=== PATIENT | female | born 1975 | race Hispanic/Latino ===

== ENCOUNTER 2020-01-29 13:01 | Inpatient (IN) | payer MEDICAID, SELFPAY ==
[2020-01-29 14:38] LABS: #Basophils 0.1 thou/uL (0.0-0.2); #Eosinphils 0.1 thou/uL (0.0-0.7); #Monocytes 0.6 thou/uL (0.11-0.59); #Neutrophils 11.4 thou/uL (1.40-6.50); %Basophils 0.6 % (0.0-1.0); %Eosinophils 0.8 % (0.0-10.0); %Lymphocytes 19.6 % (21.0-51.0); %Neutrophils 75.1 % (42.0-75.0); Hemoglobin 14.7 g/dL (12.0-16.0); Mean Corpuscular HGB CONC 31.3 g/dL (32.0-36.0); Mean Corpuscular Volume 92.7 fL (78.0-98.0); Mean Platelet Volume 7.6 fL (7.4-10.4); Platelet Count 601 thou/uL (130-400); RBC Distribution Width 12.8 % (11.5-14.5); Red Blood Cell (RBC) Count 5.06 mill/uL (4.20-5.40); White Blood Cell (WBC) Count 15.1 thou/uL (4.8-10.8)
[2020-01-29] MEDS ORDERED: Morphine 4 MG/ML VIAL ONE (14:56)
[2020-01-29] MEDS ORDERED: cefTRIAXone\\ROCEPHIN 1 GM VIAL ONE (14:56)
[2020-01-29] MEDS ORDERED: Vancomycin 1 GM/200 ML BAG ONE (14:56)
[2020-01-29] MEDS ORDERED: Ondansetron PF 4 MG/2 ML Vial ONE (15:04)
--- NOTE | 2020-01-29 15:47 | ULT ---
Ultrasound left breast limited: 01/29/2020 HISTORY: 44-year-old female with pain and erythema of the left breast. TECHNIQUE: Focused ultrasound of the region of interest FINDINGS: At the 2:00 position, 2 cm from the nipple, there is a large, approximately 5 x 4.5 x 4.5 cm complex mass, which consists of large geographic components of low-intermediate echogenicity, interspersed with large geographic components of high echogenicity. No suspicious acoustic shadowing. Little or no anechoic fluid visualized. There is blood flow at some portions of the periphery. IMPRESSION: Large, complex, noncystic mass at the upper outer quadrant of the left breast. Possibilities include phlegmon and hematoma. The appearance and history are not typical for ductal carcinoma. No percutaneously drainable fluid visualized.
[2020-01-29 16:02] LABS: Albumin 3.7 g/dL (3.5-5.0)
[2020-01-29 16:03] LABS: Chloride 94 mmol/L (98-107)
[2020-01-29 16:04] LABS: Calcium 9.3 mg/dL (7.8-10.44); Potassium 3.7 mmol/L (3.5-5.1); Sodium 127 mmol/L (136-145)
[2020-01-29 16:05] LABS: Globulin 4.8 g/dL (2.4-3.5); Glucose 334 mg/dL (70-105); Protein, Total 8.5 g/dL (6.0-8.3)
[2020-01-29 16:06] LABS: Anion Gap 16 mmol/L (10-20); Carbon Dioxide 21 mmol/L (22-29)
[2020-01-29 16:07] LABS: Bilirubin, Total 0.4 mg/dL (0.2-1.2)
[2020-01-29 16:08] LABS: Alkaline Phosphatase 131 U/L (40-110); Calc. Creatinine Clearance 0 mL/min (70-130)
[2020-01-29 16:09] LABS: BUN (Urea Nitrogen) 4 mg/dL (7.0-18.7)
[2020-01-29 16:10] LABS: AST (SGOT) 26 U/L (5-34)
[2020-01-29 16:11] LABS: ALT (SGPT) 50 U/L (8-55)
[2020-01-29] MEDS ORDERED: Lidocaine 1% w/Epinephrine 1:100K 20 ML VIAL ONE (17:33)
[2020-01-29] MEDS ORDERED: Midazolam HCl 2 mg/2 ml Vial ONE (17:57)
[2020-01-29 18:01] LABS: Lactic Acid 1.5 mmol/L (0.5-2.2)
[2020-01-29] MEDS ORDERED: Fentanyl 100 MCG/2 ML VIAL ONE (18:58)
--- NOTE | 2020-01-29 20:05 | PDOC.HHP ---
Hospitalist HPI - History of Present Illness Breast mass History of Present Illness: Ms. Reese is a 44-year-old female with a past medical history of hypertension, type 2 diabetes mellitus, bipolar disorder who presents for a breast abscess. Patient reports that approximately 2 weeks ago she noticed a lump near her left breast nipple. She attempted to use hot compresses on this area however the redness and swelling continued to grow. She went to her PCP who prescribed her Bactrim which she has taken for the past 4 days however the redness and swelling has continued to worsen. Patient has also developed fever and chills for the past 3 days. She denies any nipple discharge. She notes she had a an abscess to her left breast approximately 1 year ago but it was closer to the upper pole of the breast and did not require incision and drainage. At that time she did note purulent nipple discharge. No personal or family history of breast cancer. She does note a history of uterine cancer in her maternal aunts, and colon cancer in her paternal grandparents. Last mammogram was in 2014 which was normal. She denies any other concerns or complaints at this time. In emergency room initial vital signs 149/84, 104, 20, 94% on room air, 98.1. WBC 15.1, H/H 14.1/46.9. BUN/CR 4/0.85. Glucose 334, sodium 127, potassium 3.7. Breast ultrasound was done which found a large complex mass concerning for phlegmon versus hematoma. Patient underwent incision and drainage in the emergency room which let out copious amounts of imani pus. Patient received vancomycin, ceftriaxone, morphine and 1 L of normal saline in the emergency room. Hospitalist ROS - Review of Systems Constitutional: reports: fever, chills. denies: sweats, weakness, malaise, other Eyes: denies: pain, vision change, conjunctivae inflammation, eyelid inflammation, redness, other ENT: denies: ear pain, ear discharge, nose pain, nose discharge, nose congestion, mouth pain, mouth swelling, throat pain, throat swelling, other Respiratory: denies: cough, dry, shortness of breath, hemoptysis, SOB with excertion, pleuritic pain, sputum, wheezing, other Cardiovascular: denies: chest pain, palpitations, orthopnea, paroxysmal noc. dyspnea, edema, light headedness, other Gastrointestinal: denies: nausea, vomiting, abdominal pain, diarrhea, constipation, melena, hematochezia, other Genitourinary: denies: dysuria, frequency, incontinence, hematuria, retention, other Musculoskeletal: denies: neck pain, shoulder pain, arm pain, back pain, hand pain, leg pain, foot pain, other Skin: reports: rash (Large erythematous mass to left breast) Neurological: denies: weakness, numbness, incoordination, change in speech, confusion, seizures, other - Medication Medications: Home medications include Metformin Cyclobenzaprine Seroquel Xanax Lisinopril Lexapro Losartan Allergies to penicillin and codeine. Denies any history of anaphylaxis. Hospitalist History - Past Medical History Other Medical History: Past medical history includes Hypertension Type 2 diabetes Bipolar disorder - Past Surgical History Other Surgical History: Past surgical history of Cholecystectomy - Family History Other Family History: Family history of uterine cancer in maternal aunts, colon cancer in paternal grandparents. - Social History Smoking Status: Current every day smoker Tobacco Type: cigarettes Alcohol: reports: None Drugs: reports: none Living Situation: With Family Activity level: independent ambulation - Exam General Appearance: NAD, awake alert Eye: PERRL, anicteric sclera ENT: normocephalic atraumatic, no oropharyngeal lesions, moist mucosa Neck: supple, symmetric, no JVD, no thyromegaly, no lymphadenopathy, no carotid bruit Heart: RRR, no murmur, no gallops, no rubs, normal peripheral pulses Respiratory: CTAB, no wheezes, no rales, no ronchi, normal chest expansion, no tachypnea, normal percussion Gastrointestinal: soft, non-tender, non-distended, normal bowel sounds, no palpable masses, no hepatomegaly, no splenomegaly, no bruit Extremities: no cyanosis, no clubbing, no edema Skin - other findings: Approximately 20 cm x 20 cm area of erythema and induration to left breast Neurological: cranial nerve grossly intact, normal sensation to touch, no weakness, no focal deficits, no new deficit Musculoskeletal: normal tone, normal strength, no muscle wasting Psychiatric: normal affect, normal behavior, A&O x 3 Hospitalist Results - Labs Result Diagrams: 01/29/20 14:21 01/29/20 14:21 Lab results: WBC 15.1 thou/uL (4.8-10.8) H 01/29/20 14:21 Hgb 14.7 g/dL (12.0-16.0) 01/29/20 14:21 Hct 46.9 % (36.0-47.0) 01/29/20 14:21 MCV 92.7 fL (78.0-98.0) 01/29/20 14:21 Plt Count 601 thou/uL (130-400) H 01/29/20 14:21 Neutrophils % 75.1 % (42.0-75.0) H 01/29/20 14:21 Sodium 127 mmol/L (136-145) L 01/29/20 14:21 Potassium 3.7 mmol/L (3.5-5.1) 01/29/20 14:21 Chloride 94 mmol/L (98-107) L 01/29/20 14:21 Carbon Dioxide 21 mmol/L (22-29) L 01/29/20 14:21 BUN 4 mg/dL (7.0-18.7) L 01/29/20 14:21 Creatinine 0.85 mg/dL (0.6-1.1) 01/29/20 14:21 Glucose 334 mg/dL (70-105) H 01/29/20 14:21 Lactic Acid 1.5 mmol/L (0.5-2.2) 01/29/20 17:29 Calcium 9.3 mg/dL (7.8-10.44) 01/29/20 14:21 Total Bilirubin 0.4 mg/dL (0.2-1.2) 01/29/20 14:21 AST 26 U/L (5-34) 01/29/20 14:21 ALT 50 U/L (8-55) 01/29/20 14:21 Alkaline Phosphatase 131 U/L (40-110) H 01/29/20 14:21 Serum Total Protein 8.5 g/dL (6.0-8.3) H 01/29/20 14:21 Albumin 3.7 g/dL (3.5-5.0) 01/29/20 14:21 Hospitalist H&P A/P - Plan Plan: Breast abscess 44-year-old female past medical history of diabetes, hypertension, bipolar disorder, tobacco use who presents with a large breast abscess requiring I&D in the emergency room. White blood cell count elevated at 15.1, lactic acid elevated to 2.7. Patient tachycardic to 104. Patient started on vancomycin, ceftriaxone and received 1 L of normal saline in ED. Patient hemodynamically stable currently. Will start on vancomycin, cefepime, and clinda coverage. Wi ll consult general surgery to assess if wound needs washout. Patient will also need outpatient follow-up for mammogram to rule out malignancy. Plan Vancomycin, cefepime, clinda Trend fever curve W BC Pain control with morphine as needed General surgery consult Outpatient mammogram to rule out malignancy Severe sepsis without septic shock Patient with severe sepsis secondary to large breast abscess. Initial lactic acid 2.7, improved to 1.5 after 1 L of normal saline. WBC 15.1. Patient tachypneic to 20, tachycardic to 104. Now improved. Patient received vanc omycin and ceftriaxone in the emergency room. Will cover patient with vancomycin, cefepime, and clindamycin. Plan Vancomycin, cefepime, clindamycin IV fluids -Follow blood cultures and deescalate abx when possible Trend fever curve, WBC Source control Hyponatremia Na 127 on admission. Mild hyponatremia. Suspect likely 2/2 psychiatric medications. Will check urine lytes, osms. Plan -Urine lytes, osms -Trend sodium, q6hr -Gentle IVF, not to overcorrect more than 8 mEq in 24 hrs. -TSH Hypertension History of hypertension on lisinopril and losartan. Will hold in setting of sepsis. Type 2 diabetes mellitus History of type 2 diabetes on Metformin. Will hold Metformin and place on insulin sliding scale with ACHS glucose checks. Bipolar disorder History of bipolar disorder on Seroquel, Xanax, Lexapro. We will continue home medications. Patient currently denies SI/HI. DVT prophylaxisLovenox Full code Case discussed with attending physician, Dr. Coyle.
[2020-01-29] MEDS ORDERED: Communication Order-Pharmacy FS PRN (20:26)
[2020-01-29] MEDS ORDERED: Ondansetron ODT 4 MG TAB PO PRN (20:26)
[2020-01-29] MEDS ORDERED: Ondansetron PF 4 MG/2 ML Vial IVP PRN (20:26)
[2020-01-29] MEDS ORDERED: Dextrose 50% Abboject 50 ML SYRINGE SLOW IVP PRN ×2 (20:26→22:17)
[2020-01-29] MEDS ORDERED: Acetaminophen 325 MG TAB PO PRN (20:26)
[2020-01-29] MEDS ORDERED: Dextrose 5% in Water 1,000 ML IV PRN ×2 (20:26→22:17)
[2020-01-29] MEDS ORDERED: Vancomycin HCl 1 GM in Sodium Chloride 0.9% 250 ML 300 ML IVPB SCH (21:00)
[2020-01-29 22:09] VITALS: BMI 44.6
[2020-01-29] MEDS: Morphine 4 MG/ML VIAL SLOW IVP PRN (22:30)
[2020-01-29] MEDS: HumaLOG 300 UNITS/3 ML VIAL SC PRN (22:30)
[2020-01-29] MEDS: Clindamycin/D5W 600 MG in Premix Bag 1 BAG IVPB SCH (22:31)
[2020-01-29 22:37] LABS: Sodium 129 mmol/L (136-145)
[2020-01-29] MEDS: Cefepime 2 GM in Sodium Chloride 0.9% 100 ML IVPB SCH (23:03)
[2020-01-29] MEDS: Vancomycin 1.5 GRAM/300 ML BAG 1.5 GM in Premix Bag 1 BAG IVPB SCH (23:34)
[2020-01-29] MEDS ORDERED: Piperacillin/Tazobactam 3.375 GM in Sodium Chloride 0.9% 100 ML IVPB SCH (23:59)
[2020-01-30] MEDS: Morphine 4 MG/ML VIAL SLOW IVP PRN ×5 (04:05→21:16)
[2020-01-30 05:02] LABS: #Eosinphils 0.1 thou/uL (0.0-0.7); #Lymphocytes 2.1 thou/uL (1.20-3.40); #Monocytes 0.5 thou/uL (0.11-0.59); #Neutrophils 6.6 thou/uL (1.40-6.50); %Basophils 0.5 % (0.0-1.0); %Eosinophils 1.2 % (0.0-10.0); %Lymphocytes 22.5 % (21.0-51.0); %Monocytes 5.7 % (0.0-10.0); %Neutrophils 70.1 % (42.0-75.0); Hemoglobin 13.1 g/dL (12.0-16.0); Mean Corpuscular HGB CONC 33.4 g/dL (32.0-36.0); Mean Corpuscular Hemoglobin 31.7 pg (27.0-31.0); Mean Corpuscular Volume 94.9 fL (78.0-98.0); Mean Platelet Volume 7.7 fL (7.4-10.4); Platelet Count 453 thou/uL (130-400); RBC Distribution Width 12.5 % (11.5-14.5); Red Blood Cell (RBC) Count 4.14 mill/uL (4.20-5.40); White Blood Cell (WBC) Count 9.4 thou/uL (4.8-10.8)
[2020-01-30 05:05] LABS: Anion Gap 14 mmol/L (10-20); BUN (Urea Nitrogen) Less than 4 mg/dL (7.0-18.7); Calc. Creatinine Clearance 181 mL/min (70-130); Calcium 8.5 mg/dL (7.8-10.44); Carbon Dioxide 22 mmol/L (22-29); Chloride 98 mmol/L (98-107); Glucose 317 mg/dL (70-105); Potassium 3.5 mmol/L (3.5-5.1); Sodium 130 mmol/L (136-145)
[2020-01-30] MEDS: HumaLOG 300 UNITS/3 ML VIAL SC PRN ×3 (06:03→21:16)
[2020-01-30] MEDS: Clindamycin/D5W 600 MG in Premix Bag 1 BAG IVPB SCH ×3 (06:03→21:15)
[2020-01-30 06:44] LABS: Lactic Acid 2.7 mmol/L (0.5-2.2)
[2020-01-30] MEDS: Saccharomyces boulardii 250 MG CAP PO SCH (09:14)
[2020-01-30] MEDS: Enoxaparin Sodium 40 MG/0.4 ML SYRINGE SC SCH (09:14)
[2020-01-30 10:45] LABS: Sodium 131 mmol/L (136-145)
[2020-01-30] MEDS: Cefepime 2 GM in Sodium Chloride 0.9% 100 ML IVPB SCH ×2 (11:06→23:23)
--- NOTE | 2020-01-30 11:38 | PDOC.HOSPP ---
- Subjective Encounter Date: 01/30/20 Subjective: Feeling a little better. Still has a little bit of pain with the left breast. She reports the redness has substantially improved. - Objective Vital Signs & Weight: Vital Signs (12 hours) Temp Pulse Resp BP Pulse Ox 01/30/20 11:28 97.7 F 94 18 167/68 H 98 01/30/20 08:00 97.5 F L 106 H 16 134/78 98 01/30/20 04:00 97.9 F 104 H 16 124/63 96 01/29/20 23:38 98.0 F 117 H 20 128/58 L 97 Weight Weight 251 lb 11.2 oz I&O: 01/29/20 01/30/20 01/31/20 06:59 06:59 06:59 Intake Total 360 Balance 360 Result Diagrams: 01/30/20 03:58 01/30/20 10:25 Additional Labs: Accuchecks 01/30/20 01/29/20 11:03 22:04 POC Glucose 349 H 259 H Hospitalist ROS - Medication Medications: Active Medications Generic Name Dose Route Start Last Admin Trade Name Freq PRN Reason Stop Dose Admin Enoxaparin Sodium 40 mg 01/30/20 09:00 01/30/20 09:14 Enoxaparin Sodium 40 Mg/0.4 Ml Syringe SC 40 mg 0900 VALERI Administration Cefepime HCl 2 gm/ Sodium 100 mls @ 200 mls/hr 01/29/20 23:00 01/30/20 11:06 Chloride IVPB 100 mls 1100,2300 VALERI Administration Clindamycin Phosphate/Dextrose 50 mls @ 100 mls/hr 01/29/20 22:00 01/30/20 06:03 600 mg/ Device IVPB 50 mls Q8HR VALERI Administration Vancomycin HCl 1.5 gm/ Device 300 mls @ 200 mls/hr 01/29/20 23:59 01/29/20 23:34 IVPB 300 mls 1200,2359 VALERI Administration Insulin Human Lispro 0 units 01/29/20 20:26 01/30/20 11:06 Humalog 300 Units/3 Ml Vial SC 5 units .MILD SLIDING SCALE PRN Administration Mild Correctional Scale Insulin Human Lispro 0 units 01/29/20 22:17 01/29/20 22:30 Humalog 300 Units/3 Ml Vial SC 3 unit .BEDTIME SLIDING SC PRN Administration Bedtime Correctional Scale Morphine Sulfate 4 mg 01/29/20 22:16 01/30/20 09:14 Morphine 4 Mg/Ml Vial SLOW IVP 4 mg Q4H PRN Administration moderate severe pain Saccharomyces Boulardii 250 mg 01/30/20 09:00 01/30/20 09:14 Saccharomyces Boulardii 250 Mg Cap PO 250 mg DAILY VALERI Administration - Exam General Appearance: NAD, awake alert General - other findings: Morbidly obese Heart: RRR, no murmur, no gallops, no rubs, normal peripheral pulses Respiratory: CTAB, no wheezes, no rales, no ronchi, normal chest expansion, no tachypnea, normal percussion Gastrointestinal: soft, non-tender, non-distended, normal bowel sounds, no palpable masses, no hepatomegaly, no splenomegaly, no bruit Extremities: no cyanosis, no clubbing, no edema Skin - other findings: Left breast with induration, erythema lateral to areola. Purulent drainage Musculoskeletal: normal tone Psychiatric: normal affect, normal behavior, A&O x 3 Hosp A/P (1) Left breast abscess Code(s): N61.1 - ABSCESS OF THE BREAST AND NIPPLE Status: Acute (2) Hyponatremia Code(s): E87.1 - HYPO-OSMOLALITY AND HYPONATREMIA Status: Acute (3) Hypertension Code(s): I10 - ESSENTIAL (PRIMARY) HYPERTENSION Status: Acute (4) Diabetes mellitus Code(s): E11.9 - TYPE 2 DIABETES MELLITUS WITHOUT COMPLICATIONS Status: Acute (5) Bipolar disorder Code(s): F31.9 - BIPOLAR DISORDER, UNSPECIFIED Status: Acute (6) Morbid obesity Code(s): E66.01 - MORBID (SEVERE) OBESITY DUE TO EXCESS CALORIES Status: Acute - Plan 44-year-old female past medical history of diabetes, hypertension, bipolar disorder, tobacco use who presents with a large breast abscess requiring I&D in the emergency room. White blood cell count elevated at 15.1, lactic acid elevated to 2.7. Patient tachycardic to 104. Patient started on vancomycin, ceftriaxone and received 1 L of normal saline in ED. Patient hemodynamically stable currently. Breast abscess Vancomycin, cefepime, clinda Follow-up blood cultures and wound cultures. Trend fever curve W BC Pain control with morphine as needed General surgery consult Outpatient mammogram to rule out malignancy Severe sepsis without septic shock Patient with severe sepsis secondary to large breast abscess. Initial lactic acid 2.7, improved to 1.5 after 1 L of normal saline. WBC 15.1. Patient tachypneic to 20, tachycardic to 104. Now improved. Patient received va ncomycin and ceftriaxone in the emergency room. Will cover patient with vancomycin, cefepime, and clindamycin. Plan Vancomycin, cefepime, clindamycin IV fluids -Follow blood cultures and deescalate abx when possible Trend fever curve, WBC Source control Hyponatremia Na 127 on admission. Mild hyponatremia. Improving with hydration. Plan -Trend sodium -TSH normal Hypertension History of hypertension on lisinopril and losartan. Will hold in setting of sepsis. Type 2 diabetes mellitus History of type 2 diabetes on Metformin. Resume Metformin and continue sliding scale. Bipolar disorder History of bipolar disorder on Seroquel, Xanax, Lexapro. We will continue home medications. Patient currently denies SI/HI. DVT prophylaxisLovenox Full code
--- NOTE | 2020-01-30 11:45 | CON ---
DATE OF CONSULTATION: 01/30/2020 CHIEF COMPLAINT: Left breast infection. HISTORY OF PRESENT ILLNESS: This is a 44-year-old female with a history of recurrent left breast infection. She had previous infection in the upper breast in the same breast. Mammogram 5 years ago was normal after that resolved. She now notes increasing redness, swelling, no drainage. She denies mass in the area before. Dr. Stewart performed I and D yesterday evening and the wound was packed. PAST MEDICAL HISTORY: Includes, type 2 diabetes, bipolar, hypertension. SURGICAL HISTORY: Cholecystectomy. MEDICINES: 1. Metformin. 2. Cyclobenzaprine. 3. Seroquel. 4. Xanax. 5. Lisinopril. 6. Lexapro. 7. Losartan. ALLERGIES: ALLERGIC TO PENICILLIN AND CODEINE. SOCIAL: Every day smoker. No alcohol. No other drugs. REVIEW OF SYSTEMS: Otherwise negative other than what is described above. PHYSICAL EXAMINATION: HEENT: Sclerae anicteric. Oropharynx clear. NECK: No lymphadenopathy. CHEST: Clear. HEART: Regular rate. ABDOMEN: Soft, nontender. EXTREMITIES: She has no edema to extremities. BREASTS: Examination of the right breast, right axilla is within normal limits without mass or lymphadenopathy. There is no left axillary lymphadenopathy. Left breast reveals an abscess to the upper just above the nipple breast. The packing is removed and dry dressings were placed. There was no ongoing purulence. There is underlying induration. No evidence of ulcerated mass in the area. ASSESSMENT: Left breast mastitis/infection status post incision and drainage. PLAN: Continue iodoform packing, needs to be seen in followup by me in a few weeks after she gets converted to oral antibiotics. I will follow through to make sure that this wound completely heals. We will arrange for mammogram after that. I do not think this represents an inflammatory breast cancer. Job ID: [id number]
[2020-01-30] MEDS ORDERED: metFORMIN 500 MG TAB PO SCH (12:00)
[2020-01-30] MEDS: Vancomycin 1.5 GRAM/300 ML BAG 1.5 GM in Premix Bag 1 BAG IVPB SCH ×2 (12:48→23:56)
[2020-01-30] MEDS: Cyclobenzaprine 10 MG TAB PO SCH ×2 (15:28→21:15)
[2020-01-30] MEDS: metFORMIN 500 MG TAB PO SCH (16:48)
[2020-01-30 20:50] LABS: SARS-CoV-2 MS2 Positive; SARS-CoV-2 N Gene Negative; SARS-CoV-2 S Gene Negative; SARS-CoV-2 by NAA Not Detected (NotDetected); SARS-CoV-2 orf1ab Negative
[2020-01-30] MEDS ORDERED: FLU VACC QS2020-21(6MOS UP)/PF 60 MCG/0.5 ML SYRINGE IM ONE (21:00)
[2020-01-30] MEDS ORDERED: Simvastatin 10 MG TAB PO SCH (21:00)
[2020-01-30] MEDS ORDERED: Ondansetron PF 4 MG/2 ML Vial IVP PRN (21:41)
[2020-01-30] MEDS: ALPRAZolam 1 MG TAB PO PRN (21:55)
[2020-01-30 23:32] LABS: Vancomycin, Trough 8.1 ug/mL
[2020-01-31] MEDS: Morphine 4 MG/ML VIAL SLOW IVP PRN ×4 (01:42→13:20)
[2020-01-31] MEDS: HumaLOG 300 UNITS/3 ML VIAL SC PRN (06:23)
[2020-01-31] MEDS: Clindamycin/D5W 600 MG in Premix Bag 1 BAG IVPB SCH ×2 (06:23→13:21)
[2020-01-31 07:04] LABS: #Basophils 0.1 thou/uL (0.0-0.2); #Eosinphils 0.1 thou/uL (0.0-0.7); #Lymphocytes 2.4 thou/uL (1.20-3.40); #Monocytes 0.5 thou/uL (0.11-0.59); #Neutrophils 5.3 thou/uL (1.40-6.50); %Basophils 0.7 % (0.0-1.0); %Eosinophils 1.5 % (0.0-10.0); %Lymphocytes 28.6 % (21.0-51.0); %Monocytes 5.6 % (0.0-10.0); %Neutrophils 63.7 % (42.0-75.0); Hemoglobin 13.2 g/dL (12.0-16.0); Mean Corpuscular HGB CONC 33.2 g/dL (32.0-36.0); Mean Corpuscular Hemoglobin 31.1 pg (27.0-31.0); Mean Corpuscular Volume 93.6 fL (78.0-98.0); Mean Platelet Volume 7.2 fL (7.4-10.4); Platelet Count 476 thou/uL (130-400); RBC Distribution Width 12.5 % (11.5-14.5); Red Blood Cell (RBC) Count 4.24 mill/uL (4.20-5.40); White Blood Cell (WBC) Count 8.3 thou/uL (4.8-10.8)
[2020-01-31 07:37] LABS: Anion Gap 13 mmol/L (10-20); BUN (Urea Nitrogen) 5 mg/dL (7.0-18.7); Calc. Creatinine Clearance 184 mL/min (70-130); Calcium 8.6 mg/dL (7.8-10.44); Carbon Dioxide 24 mmol/L (22-29); Chloride 98 mmol/L (98-107); Glucose 280 mg/dL (70-105); Potassium 3.3 mmol/L (3.5-5.1); Sodium 132 mmol/L (136-145)
[2020-01-31] MEDS ORDERED: Insulin Regular 300 UNITS/3 ML VIAL SC PRN (08:10)
[2020-01-31] MEDS ORDERED: Potassium Chloride 20 MEQ TAB PO SCH (08:15)
[2020-01-31] MEDS: Cyclobenzaprine 10 MG TAB PO SCH (08:25)
[2020-01-31] MEDS: Vancomycin 1.5 GRAM/300 ML BAG 1.5 GM in Premix Bag 1 BAG IVPB SCH (08:26)
[2020-01-31] MEDS: metFORMIN 500 MG TAB PO SCH (08:26)
[2020-01-31] MEDS: Saccharomyces boulardii 250 MG CAP PO SCH (08:27)
[2020-01-31] MEDS: Enoxaparin Sodium 40 MG/0.4 ML SYRINGE SC SCH (08:27)
[2020-01-31 08:28] VITALS: BP 115/71
--- NOTE | 2020-01-31 08:33 | PRG ---
DATE OF SERVICE: 01/31/2020 SUBJECTIVE: No complaints today. Afebrile. Vital signs are stable. Dressings were removed. The inflammation redness to the left breast is much improved. The open wound was probed. It is approximately 2 cm deep on the medial side. ASSESSMENT: Mastitis, [id number]. PLAN: Repacked today per Wound Care. Await for culture results. I suspect she will be ready for discharge tomorrow. Job ID: [id number]
[2020-01-31] MEDS ORDERED: Escitalopram Oxalate 20 mg Tablet PO SCH (09:00)
[2020-01-31] MEDS ORDERED: Lisinopril 10 MG TAB PO SCH (09:00)
[2020-01-31 10:50] VITALS: TEMP 97.8
[2020-01-31] MEDS: Cefepime 2 GM in Sodium Chloride 0.9% 100 ML IVPB SCH (13:21)
[2020-01-31] MEDS: ALPRAZolam 1 MG TAB PO PRN (13:21)
--- NOTE | 2020-01-31 17:05 | PDOC.DS.DS ---
Provider - Provider Date of Admission: 01/29/20 19:13 Date of Discharge: 01/31/20 Admitting Provider: Kt Coyle MD Primary Care Physician: Sharmaine Hines PA-C Course - Hospital Course Hospital Course: 44-year-old female past medical history of diabetes, hypertension, bipolar disorder, tobacco use who presents with a large breast abscess requiring I&D in the emergency room. White blood cell count elevated at 15.1, lactic acid elevated to 2.7. Patient tachycardic to 104. Patient started on vancomycin, ceftriaxone and received 1 L of normal saline in ED. Patient hemodynamically stable currently. Breast abscess Vancomycin, cefepime, clinda Blood cultures and wound cultures negative Pain control with morphine as needed General surgery consult did not recommend any surgical intervention. Outpatient mammogram to rule out malignancy Severe sepsis without septic shock Patient with severe sepsis secondary to large breast abscess. Initial lactic acid 2.7, improved to 1.5 after 1 L of normal saline. WBC 15.1. Patient tachypneic to 20, tachycardic to 104. Now improved. Patient received vancomycin and ceftriaxone in the emergency room. Will cover patient with vancomycin, cefepime, and clindamycin. Hyponatremia Na 127 on admission. Mild hyponatremia. Improved with hydration. Hypertension History of hypertension on lisinopril and losartan. Initially held for concerns of sepsis subsequently resumed. Type 2 diabetes mellitus History of type 2 diabetes on Metformin. Resumed Metformin and continue sliding scale. Bipolar disorder History of bipolar disorder on Seroquel, Xanax, Lexapro. Continued home medications. Once patient's cultures remain negative and exam of the breast significantly improved she was felt to be stable for discharge to home with oral antibiotics. Wound care pack to the wound and educated the patient on wound packing. The patient indicated her would be able to help her get the wound packed at home. She is encouraged to follow-up with her PCP for additional pain medications if needed. Discharge was discussed with general surgery who agreed with the plan. She will follow up with surgery in 1 week. Patient will be discharged in stable condition. Resuscitation Status: 01/29/20 20:26 Resuscitation Status Routine Co-Sign Provider: Resuscitation Status: FULL: Full Resuscitation - Labs Lab Results: 01/31/20 06:49 01/31/20 06:49 Abnormal Lab Results - Last 48 hrs 01/29/20 04:03: Urine Osmolality 146 L 01/29/20 22:14: Sodium 129 L 01/29/20 22:14: Serum Osmolality 277 L 01/30/20 03:58: Sodium 130 L, BUN Less than 4 L 01/30/20 03:58: RBC 4.14 L, MCH 31.7 H, Plt Count 453 H, Neutrophils # 6.6 H 01/30/20 06:09: Lactic Acid 2.7 H 01/30/20 10:25: Sodium 131 L 01/31/20 06:49: Sodium 132 L, Potassium 3.3 L, BUN 5 L 01/31/20 06:49: MCH 31.1 H, Plt Count 476 H, MPV 7.2 L Microbiology - Entire Visit 01/29/20 14:57 Venous blood - Left Arm Blood Culture - Preliminary NO GROWTH AT 48 HOURS 01/29/20 14:57 Venous blood - Right Arm Blood Culture - Preliminary NO GROWTH AT 48 HOURS 01/29/20 18:13 Breast - Pending Bacterial Culture - Preliminary - Physical Exam Vitals: Vital Signs (12 hours) Temp Pulse Resp BP BP Pulse Ox 01/31/20 08:26 115/71 01/31/20 08:00 97.8 F 96 16 115/71 96 Weight Admit Weight 251 lb 11.2 oz Weight 251 lb 11.2 oz Physical Exam: The patient was seen and examined on the day of discharge. Left breast has significant reduced erythema and induration. Still has some brownish purulent drainage with compression at the incision site. Problem - Problem (1) Left breast abscess Code(s): N61.1 - ABSCESS OF THE BREAST AND NIPPLE Status: Acute (2) Hyponatremia Code(s): E87.1 - HYPO-OSMOLALITY AND HYPONATREMIA Status: Acute (3) Hypertension Code(s): I10 - ESSENTIAL (PRIMARY) HYPERTENSION Status: Acute (4) Diabetes mellitus Code(s): E11.9 - TYPE 2 DIABETES MELLITUS WITHOUT COMPLICATIONS Status: Acute (5) Bipolar disorder Code(s): F31.9 - BIPOLAR DISORDER, UNSPECIFIED Status: Acute (6) Morbid obesity Code(s): E66.01 - MORBID (SEVERE) OBESITY DUE TO EXCESS CALORIES Status: Acute Plan - Discharge Medications Prescriptions: Clindamycin HCl [Cleocin] 300 mg PO TID #21 capsule Home Medications: Medication Instructions Recorded Confirmed Type ALPRAZolam [Xanax] 2 mg PO TID PRN 01/29/20 01/29/20 History Cyclobenzaprine [Flexeril] 10 mg PO TID 01/29/20 01/29/20 History Escitalopram Oxalate 20 mg PO DAILY 01/29/20 01/29/20 History Lisinopril 10 mg PO QAM 01/29/20 01/29/20 History Lovastatin 20 mg PO HS 01/29/20 01/29/20 History QUEtiapine Fumarate [SEROquel] 300 mg PO HS 01/29/20 01/29/20 History metFORMIN [Glucophage] 1,000 mg PO BID-WM 01/29/20 01/29/20 History Clindamycin HCl [Cleocin] 300 mg PO TID #21 capsule 01/31/20 Rx Allergies: codeine Allergy (Verified 01/29/20 22:06) PER ER NOTES Penicillins Allergy (Verified 01/29/20 22:06) PER ER NOTES tramadol Allergy (Verified 01/29/20 22:06) PER ER NOTES - Discharge Instructions Discharge Instructions:: Breast cancer screen when possible. Activity:: Activity as Tolerated Nourishment:: Diabetic Diet Equipment/Supplies:: Wound Care - Follow up Plan Referrals: Sharmaine Hines PA-C [Primary Care Provider] - Robbie Sheldon MD [Active] - 7 Days Disposition: HOME Quality - Care Measures CORE MEASURES:: N/A
== END 2020-01-31 16:40 | disposition home or self-care (01) | DRG 853 ==
LOC: ERS 13:01 → ONC 19:13
PROVIDERS: ADMIT Student in an Organized Health Care Education/Training Program; ATTEND Internal Medicine
PROC: 0H9U0ZZ Drainage of Left Breast, Open Approach (ICD-10-PCS; principal; 2020-01-29)
PROC: 3E02340 Introduction of Influenza Vaccine into Muscle, Percutaneous Approach (ICD-10-PCS; 2020-01-30)
DX: A41.9 Sepsis, unspecified organism (principal); R65.21 Severe sepsis with septic shock; E87.1 Hypo-osmolality and hyponatremia; Z68.41 Body mass index [BMI] 40.0-44.9, adult; N61.1 Abscess of the breast and nipple; Z20.828 Contact with and (suspected) exposure to other viral communicable diseases; Z23 Encounter for immunization; N61.0 Mastitis without abscess; M54.9 Dorsalgia, unspecified; G89.29 Other chronic pain; F41.9 Anxiety disorder, unspecified; F31.9 Bipolar disorder, unspecified; F17.210 Nicotine dependence, cigarettes, uncomplicated; E66.01 Morbid (severe) obesity due to excess calories; E11.9 Type 2 diabetes mellitus without complications; Z88.5 Allergy status to narcotic agent; Z88.0 Allergy status to penicillin; Z79.84 Long term (current) use of oral hypoglycemic drugs; Z79.899 Other long term (current) drug therapy; Z90.49 Acquired absence of other specified parts of digestive tract
CPT/HCPCS: 10060; 36415; 36416; 80048; 80053; 80202; 83605; 83930; 83935; 84295; 84300; 84443; 85025; 87040; 87070; 87205; 87635; 90471; 90662; 90732; 96365; 96375; G0008; G0009; J0692; J0696; J1650; J2250; J2270; J2405; J3010; J3370; J3490; U0003

== ENCOUNTER 2020-02-18 13:15 | Inpatient (IN) | payer SELFPAY ==
[2020-02-18] MEDS ORDERED: Cefepime 2 GM VIAL ONE (13:44)
[2020-02-18] MEDS ORDERED: HYDROmorphone 0.5 MG/0.5 ML SYRINGE ONE ×2 (13:44→16:05)
[2020-02-18] MEDS ORDERED: Iopamidol-370 76% 500 ML 1 ML ONE (13:45)
[2020-02-18 13:52] LABS: #Basophils 0.1 thou/uL (0.0-0.2); #Eosinphils 0.1 thou/uL (0.0-0.7); #Lymphocytes 3.5 thou/uL (1.20-3.40); #Monocytes 0.5 thou/uL (0.11-0.59); #Neutrophils 12.6 thou/uL (1.40-6.50); %Basophils 0.5 % (0.0-1.0); %Eosinophils 0.8 % (0.0-10.0); %Monocytes 3.2 % (0.0-10.0); %Neutrophils 74.5 % (42.0-75.0); Hemoglobin 15.2 g/dL (12.0-16.0); Mean Corpuscular HGB CONC 33.5 g/dL (32.0-36.0); Mean Corpuscular Hemoglobin 30.9 pg (27.0-31.0); Mean Corpuscular Volume 92.3 fL (78.0-98.0); Mean Platelet Volume 7.5 fL (7.4-10.4); Platelet Count 576 thou/uL (130-400); RBC Distribution Width 12.6 % (11.5-14.5); White Blood Cell (WBC) Count 16.9 thou/uL (4.8-10.8)
[2020-02-18] MEDS ORDERED: Ondansetron PF 4 MG/2 ML Vial ONE (13:56)
--- NOTE | 2020-02-18 13:57 | RAD ---
Exam: Chest one view HISTORY:Sepsis. Breast infection Comparison: 08/27/2016 FINDINGS: Cardiac silhouette: Normal Aorta: Unremarkable Pulmonary vessels: Normal Costophrenic angles: Clear LUNGS: No masses or consolidation. Pneumothorax: None Osseous abnormalities: None IMPRESSION: No acute cardiopulmonary process.
[2020-02-18 14:17] LABS: ALT (SGPT) 23 U/L (8-55); AST (SGOT) 28 U/L (5-34); Albumin 4.2 g/dL (3.5-5.0); Alkaline Phosphatase 134 U/L (40-110); Anion Gap 19 mmol/L (10-20); BUN (Urea Nitrogen) 9 mg/dL (7.0-18.7); Bilirubin, Total 0.4 mg/dL (0.2-1.2); Calc. Creatinine Clearance 0 mL/min (70-130); Calcium 9.9 mg/dL (7.8-10.44); Carbon Dioxide 22 mmol/L (22-29); Chloride 91 mmol/L (98-107); Globulin 5.5 g/dL (2.4-3.5); Glucose 400 mg/dL (70-105); Protein, Total 9.7 g/dL (6.0-8.3); Sodium 127 mmol/L (136-145)
[2020-02-18] MEDS ORDERED: Vancomycin 1 GM/200 ML BAG ONE (14:26)
[2020-02-18 14:49] LABS: Bilirubin Negative (Negative); Blood, Urine Negative (Negative); Clarity Clear (Clear); Glucose, Urine (Dipstick) Greater than 1000 mg/dL (Negative); Ketone, Urine Negative (Negative); Leukocyte Negative Leu/uL (Negative); Nitrite Negative (Negative); Protein, Urine (Dipstick) Negative (Neg-Trace); Specific Gravity, Urine 1.028 (1.002-1.036); Urobilinogen Normal mg/dL (Less than 2)
[2020-02-18 14:50] LABS: Pregnancy Test - Urine (BHCG) Negative (Negative); Pregu Control Background? CLEAR/WHITE (CLR/WHITE); Pregu Control Bar Appear? YES (CONTROL BAR); Specific Gravity 1.028 (1.002-1.036)
--- NOTE | 2020-02-18 15:31 | CT ---
CT OF THE CHEST WITH IV CONTRAST INDICATION: 44-year-old female with history of breast infection COMPARISON: Left breast ultrasound dated January 19, 2020 FINDINGS: CHEST: Lungs: There is dependent atelectasis within both lower lobes. No suspicious pulmonary nodule or cons olidation is evident. Pleural space: No effusion. Mediastinum: No pathologically enlarged lymph nodes are evident. Upper abdomen:There is diffuse fatty liver. The gallbladder surgically absent. Adrenal glands are nor mal appearing. Osseous structures: No acute osseous abnormality. No destructive osteolytic or osteoblastic lesion i s identified. There is scattered degenerative and osteoarthritic changes. Soft tissues:There is a 5.8 cm mass seen within the left breast with prominent skin thickening of the left breast. There is an enlarged left axillary lymph node measuring 2.3 x 0.9 cm. No additional enlarged lymph nodes are evident. IMPRESSION: 1. Large left breast mass with skin thickening. The patient is reportedly being followed for left diana ast abscess. On a prior left breast ultrasound there was a complex complex mass within the left breast. Patient reportedly had history of prior left breast abscesses. Would recommend continued clin ical follow-up and consideration for surgical referral. 2. Mildly prominent lymph node within the left axilla. 3. No acute cardiopulmonary abnormality. 4. Fatty liver.
--- NOTE | 2020-02-18 16:54 | PDOC.HHP ---
Hospitalist HPI - History of Present Illness Fever, breast abscess History of Present Illness: Ms. Reese is a 44-year-old female with a past medical history of hypertension, type 2 diabetes mellitus, bipolar disorder who represents to the emergency room for a breast abscess associated with fevers. Of note patient was recently admitted approximately 2 weeks ago on 01/29/2020 for this abscess. I&D was done by the emergency room and surgical intervention was not needed at that time. She was treated with IV antibiotics and discharged on 300 mg 3 times daily of clindamycin for 1 week. Patient reports that 2 days after she completed her antibiotic course she noticed increased pain and swelling to her left breast. Patient reports that she felt continual worsening of her symptoms over the next week, however since it was Thanksgiving she had difficulty connecting with her primary care provider and also Dr. Sheldon's office who consulted her during her prior admission. Patient finally decided to present to the emergency room because over the past 2 days she has had subjective fevers and chills. She reports that she took good care of the wound immediately after and that minimal pus was drained from it. She reports the drainage was mostly oily and mixed with blood. She does have a history of a prior breast abscess of the same breast approximately 1 year ago. She has no personal or family history of breast cancer. But does have a family history of uterine cancer in her maternal aunts and colon cancer in a paternal grandparents. Her last mammogram was in 2014 which was normal she denies any other concerns or complaints at this time. Emergency room initial vital signs 122/76, 120, 18, 98.3, 100% on room air. White blood cell count elevated at 16.9. Lactic acid 3.7. BUN/CR 9/0.98. H/H 15.2/45.2. Glucose 400. Chest x-ray with no acute findings. CT of the breast was done which showed large left breast mass with skin thickening with mild prominent lymph node in the left axilla with recommended surgical referral. Patient is admitted to the hospitalist service for management of patient's sepsis secondary to breast abscess. Hospitalist ROS - Review of Systems Constitutional: reports: fever, chills, malaise. denies: sweats, weakness Eyes: denies: vision change ENT: denies: nose congestion, throat pain Respiratory: denies: cough, shortness of breath, hemoptysis, pleuritic pain, sputum, wheezing Cardiovascular: denies: chest pain, palpitations, orthopnea, paroxysmal noc. dyspnea, edema, light headedness, other Gastrointestinal: denies: nausea, vomiting, abdominal pain, diarrhea, constipation, melena, hematochezia, other Genitourinary: denies: dysuria, frequency, incontinence, hematuria, retention, other Musculoskeletal: denies: neck pain, shoulder pain, arm pain, back pain, hand pain, leg pain, foot pain, other Skin: reports: rash, lesions Neurological: denies: weakness, numbness, incoordination, change in speech, confusion, seizures, other - Medication Medications: Home medications include Metformin Cyclobenzaprine Seroquel Xanax Lisinopril Lexapro Losartan Allergies to penicillin and codeine. Denies any history of anaphylaxis. Hospitalist History - Past Medical History Other Medical History: Past medical history includes Hypertension Type 2 diabetes Bipolar disorder - Past Surgical History Other Surgical History: Past surgical history of Cholecystectomy - Family History Other Family History: Family history of uterine cancer in maternal aunts, colon cancer in paternal grandparents. - Social History Alcohol: reports: None Drugs: reports: none Living Situation: With Family Activity level: independent ambulation - Exam General Appearance: NAD, awake alert Eye: PERRL, anicteric sclera ENT: normocephalic atraumatic, no oropharyngeal lesions, moist mucosa Neck: supple, symmetric, no JVD, no thyromegaly, no lymphadenopathy, no carotid bruit Heart: RRR, no murmur, no gallops, no rubs, normal peripheral pulses Respiratory: CTAB, no wheezes, no rales, no ronchi, normal chest expansion, no tachypnea, normal percussion Gastrointestinal: soft, non-tender, non-distended, normal bowel sounds, no palpable masses, no hepatomegaly, no splenomegaly, no bruit Extremities: no cyanosis, no clubbing, no edema Skin: negative: no rashes (Erythema, scar from I&D, no peau' de orange) Skin - other findings: large mass to L breast, TTP, extending induration below the breast crease Neurological: cranial nerve grossly intact, normal sensation to touch, no weakness, no focal deficits, no new deficit Musculoskeletal: normal tone, normal strength, no muscle wasting Psychiatric: normal affect, normal behavior, A&O x 3 Hospitalist Results - Labs Result Diagrams: 02/18/20 13:31 02/18/20 13:31 Lab results: WBC 16.9 thou/uL (4.8-10.8) H 02/18/20 13:31 Hgb 15.2 g/dL (12.0-16.0) 02/18/20 13:31 Hct 45.2 % (36.0-47.0) 02/18/20 13:31 MCV 92.3 fL (78.0-98.0) 02/18/20 13:31 Plt Count 576 thou/uL (130-400) H 02/18/20 13:31 Neutrophils % 74.5 % (42.0-75.0) 02/18/20 13:31 Sodium 127 mmol/L (136-145) L 02/18/20 13:31 Potassium 5.0 mmol/L (3.5-5.1) 02/18/20 13:31 Chloride 91 mmol/L (98-107) L 02/18/20 13:31 Carbon Dioxide 22 mmol/L (22-29) 02/18/20 13:31 BUN 9 mg/dL (7.0-18.7) 02/18/20 13:31 Creatinine 0.98 mg/dL (0.6-1.1) 02/18/20 13:31 Glucose 400 mg/dL (70-105) H 02/18/20 13:31 Lactic Acid 3.7 mmol/L (0.5-2.2) H 02/18/20 13:31 Calcium 9.9 mg/dL (7.8-10.44) 02/18/20 13:31 Total Bilirubin 0.4 mg/dL (0.2-1.2) 02/18/20 13:31 AST 28 U/L (5-34) 02/18/20 13:31 ALT 23 U/L (8-55) 02/18/20 13:31 Alkaline Phosphatase 134 U/L (40-110) H 02/18/20 13:31 Serum Total Protein 9.7 g/dL (6.0-8.3) H 02/18/20 13:31 Albumin 4.2 g/dL (3.5-5.0) 02/18/20 13:31 Urine Ketones Negative mg/dL (Negative) 02/18/20 14:40 Urine Blood Negative (Negative) 02/18/20 14:40 Urine Nitrite Negative (Negative) 02/18/20 14:40 Ur Leukocyte Esterase Negative Clarence/uL (Negative) 02/18/20 14:40 Hospitalist H&P A/P - Plan Plan: Breast abscess 44-year-old female past medical history of diabetes, hypertension, bipolar disorder, tobacco use who represents for a large breast abscess/mass. Patient was admitted 2 weeks ago for same complaint where she was treated with IV antibiotics. Patient underwent an incision and drainage in the emergency room on 01/29/2020. Surgical intervention was not warranted at that time. Blood and wound cultures with no growth. Patient was discharged on clindamycin for 7 d ays, but had worsening of her erythema and swelling to her left breast. Patient developed fevers and chills 2 days prior to admission prompting her to represent to the emergency room. White blood cell count elevated to 16.9. Lactic acid 3.7. Vital signs stable but tachycardic. Patient received IV fluids, vancomycin, cefepime in emergency room. We will continue IV antibiotics. Since patient has failed initial antibiotic therapy concern for inflammatory breast cancer. Patient does not have a family history of breast cancer, but does have family history of uterine and colon cancer. Last mammogram in 2014 which was normal. Will admit patient and treat for sepsis. We will also consult general surgery for question surgical involvement. Will also obtain oncology consult for further recommendations. Plan Continue IV vancomycin, cefepime, clindamycin Trend fever curve WBC Pain control with morphine as needed General surgery consult, recommendations appreciated Oncology consult, recommendations appreciated ID consult, recommendations appreciated Severe sepsis without septic shock Patient with severe sepsis secondary to large breast abscess. Lactic acid 3.7 WBC 16.9. Patient tachypneic to 20, tachycardic to 120. Now improved. Patient received vancomycin and ceftriaxone in the emergency room. Will cover patient with vancomycin, cefepime, and clindamycin. Plan Vancomycin, cefepime, clindamycin IV fluids -Follow blood cultures Trend fever curve, WBC Source control Hyponatremia Na 127 on admission. Mild hyponatremia. Suspect likely 2/2 psychiatric medications. Will check urine lytes, osms. Plan -Urine lytes, osms -Trend sodium, q6hr -Gentle IVF, not to overcorrect more than 8 mEq in 24 hrs. -TSH Hypertension History of hypertension on lisinopril and losartan. Will hold in setting of sepsis. Type 2 diabetes mellitus History of type 2 diabetes on Metformin. Will hold Metformin and place on insulin sliding scale with ACHS glucose checks. Bipolar disorder History of bipolar disorder on Seroquel, Xanax, Lexapro. We will continue home medications. Patient currently denies SI/HI. DVT prophylaxisLovenox Full code Case discussed with attending physician, Dr. Rincon.
[2020-02-18] MEDS ORDERED: Ondansetron ODT 4 MG TAB PO PRN (17:04)
[2020-02-18] MEDS ORDERED: Dextrose 50% Abboject 50 ML SYRINGE SLOW IVP PRN (17:33)
[2020-02-18] MEDS ORDERED: Dextrose 5% in Water 1,000 ML IV PRN (17:33)
[2020-02-18] MEDS ORDERED: Vancomycin 1 GM in Premix Bag 1 BAG IVPB SCH (17:45)
[2020-02-18] MEDS: Sodium Chloride 0.9% 1,000 ML IV SCH (19:42)
[2020-02-18] MEDS ORDERED: HYDROcodone/Acetaminophen 5/325 mg Tablet PO PRN (20:05)
[2020-02-18 20:07] VITALS: BMI 44.9
[2020-02-18] MEDS ORDERED: Cefepime 2 GM in Sodium Chloride 0.9% 100 ML IVPB SCH (21:00)
[2020-02-18] MEDS: Simvastatin 10 MG TAB PO SCH (21:34)
[2020-02-18] MEDS: HYDROcodone/Acetaminophen 5/325 mg Tablet PO PRN (21:34)
[2020-02-18] MEDS: Vancomycin HCl 1.75 GM in Sodium Chloride 0.9% 500 ML IVPB SCH (21:35)
[2020-02-18] MEDS: HumaLOG 300 UNITS/3 ML VIAL SC PRN (21:43)
[2020-02-18] MEDS: Morphine 2 MG/ML VIAL SLOW IVP PRN (23:54)
[2020-02-19] MEDS: Sodium Chloride 0.9% 1,000 ML IV SCH ×2 (02:58→17:23)
[2020-02-19] MEDS: Cefepime 2 GM in Sodium Chloride 0.9% 100 ML IVPB SCH ×2 (02:58→14:14)
[2020-02-19] MEDS: Morphine 2 MG/ML VIAL SLOW IVP PRN ×2 (03:56→21:03)
[2020-02-19 04:39] LABS: #Eosinphils 0.2 thou/uL (0.0-0.7); #Monocytes 0.6 thou/uL (0.11-0.59); #Neutrophils 9.7 thou/uL (1.40-6.50); %Basophils 0.1 % (0.0-1.0); %Eosinophils 1.4 % (0.0-10.0); %Lymphocytes 16.3 % (21.0-51.0); %Monocytes 4.6 % (0.0-10.0); %Neutrophils 77.6 % (42.0-75.0); Hemoglobin 12.8 g/dL (12.0-16.0); Mean Corpuscular HGB CONC 32.9 g/dL (32.0-36.0); Mean Corpuscular Hemoglobin 30.6 pg (27.0-31.0); Mean Corpuscular Volume 93.1 fL (78.0-98.0); Mean Platelet Volume 7.2 fL (7.4-10.4); Platelet Count 485 thou/uL (130-400); RBC Distribution Width 12.6 % (11.5-14.5); Red Blood Cell (RBC) Count 4.17 mill/uL (4.20-5.40); White Blood Cell (WBC) Count 12.5 thou/uL (4.8-10.8)
[2020-02-19 05:07] LABS: Anion Gap 13 mmol/L (10-20); BUN (Urea Nitrogen) 4 mg/dL (7.0-18.7); Calc. Creatinine Clearance 177 mL/min (70-130); Calcium 8.3 mg/dL (7.8-10.44); Carbon Dioxide 25 mmol/L (22-29); Chloride 100 mmol/L (98-107); Glucose 275 mg/dL (70-105); Potassium 3.8 mmol/L (3.5-5.1); Sodium 134 mmol/L (136-145)
[2020-02-19] MEDS: Vancomycin HCl 1.75 GM in Sodium Chloride 0.9% 500 ML IVPB SCH ×2 (08:19→21:28)
[2020-02-19] MEDS: Escitalopram Oxalate 20 mg Tablet PO SCH (08:20)
[2020-02-19] MEDS: Enoxaparin Sodium 40 MG/0.4 ML SYRINGE SC SCH (08:20)
[2020-02-19] MEDS: Acetaminophen 325 MG TAB PO PRN ×2 (08:20→20:59)
[2020-02-19] MEDS: HYDROcodone/Acetaminophen 5/325 mg Tablet PO PRN (08:59)
--- NOTE | 2020-02-19 10:02 | CON ---
DATE OF CONSULTATION: CHIEF COMPLAINT: Painful left breast mass. HISTORY OF PRESENT ILLNESS: The patient is a 44-year-old female, diabetic, with a 5-year history of intermittent abscess to the left breast. Three weeks ago, she went to the emergency room. A limited I and D was performed. However, it quickly recurred. She has been on antibiotics since, but it continues to get worse. She came into the emergency room. PAST MEDICAL HISTORY: 1. Morbid obesity. 2. Bipolar. 3. Diabetes. 4. Hypertension. PAST SURGICAL HISTORY: 1. Laparoscopic cholecystectomy. 2. Uterine surgery. MEDICATIONS: 1. Metformin. 2. Lisinopril. 3. Lexapro. 4. Seroquel. 5. Xanax. ALLERGIES: PENICILLIN, CODEINE, AND TRAMADOL. SOCIAL HISTORY: She is . Unemployed. Smokes 2 cigarettes a day. No alcohol. FAMILY HISTORY: Diabetes. PHYSICAL EXAMINATION: VITAL SIGNS: Temperature 97.6, pulse 99, and blood pressure 144/91. GENERAL: Morbidly obese female, lying still, in minimal distress. HEENT: Unremarkable. LUNGS: Clear. HEART: Regular rate and rhythm. BREASTS: She has a large about 8 cm inflammatory mass of the upper outer left breast, very tender. There is a tiny little 5-mm healed incision from the previous I and D, very tender. There is some adenopathy. ABDOMEN: Soft, nondistended, and nontender. EXTREMITIES: Unremarkable. LABORATORY DATA: Her white blood cell count is 12.5, down from 16; hemoglobin and hematocrit 12 and 38, and platelet count of 485. Her electrolytes show an elevated glucose of 277, which is down from 400. She had a CT scan of the chest, which showed a complex inflammatory mass, 6 cm, left breast with skin thickening and a large axillary lymph node. ASSESSMENT: Recurrent breast abscess, possible malignancy. PLAN: I and D and biopsy in the OR. CONSENT: I have discussed planned procedure as well as risks of bleeding, recurrent infection, as well as scarring. She understands and gives informed consent. Job ID: [id number]
[2020-02-19] MEDS ORDERED: Fentanyl 100 MCG/2 ML VIAL ONE ×2 (10:04→12:30)
[2020-02-19] MEDS ORDERED: PROPOFOL 200 MG/20 ML VIAL ONE (10:29)
[2020-02-19] MEDS ORDERED: Ondansetron PF 4 MG/2 ML Vial ONE (10:29)
[2020-02-19] MEDS ORDERED: Dexamethasone 20 MG/5 ML VIAL ONE (10:29)
[2020-02-19] MEDS ORDERED: Lidocaine 1% PF 5 ML VIAL ONE (10:29)
[2020-02-19] MEDS ORDERED: Promethazine HCl 25 MG/ML VIAL IM PRN ×2 (11:06→12:29)
[2020-02-19] MEDS ORDERED: Meperidine HCl/PF 25 MG/ML VIAL SLOW IVP PRN ×2 (11:06→12:29)
[2020-02-19] MEDS ORDERED: Promethazine HCl 25 MG/ML VIAL SLOW IVP PRN ×2 (11:06→12:29)
[2020-02-19] MEDS ORDERED: Ondansetron HCl/PF 4 MG/2 ML Vial IVP PRN ×2 (11:06→12:29)
[2020-02-19] MEDS ORDERED: Ondansetron PF 4 MG/2 ML Vial IVP PRN (12:13)
[2020-02-19] MEDS ORDERED: Dextrose 50% Abboject 50 ML SYRINGE SLOW IVP PRN (12:13)
[2020-02-19] MEDS ORDERED: Dextrose 5% in Water 1,000 ML IV PRN (12:13)
[2020-02-19] MEDS ORDERED: hydrALAZINE 20 MG/ML VIAL SLOW IVP PRN (12:13)
[2020-02-19] MEDS ORDERED: HYDROcodone/Acetaminophen 7.5/325 mg Tablet PO PRN (12:13)
[2020-02-19] MEDS ORDERED: Midazolam HCl 2 mg/2 ml Vial ONE (12:19)
[2020-02-19] MEDS ORDERED: HYDROmorphone 2 MG/ML VIAL SLOW IVP PRN (12:29)
[2020-02-19 14:02] LABS: SARS-CoV-2 MS2 Positive; SARS-CoV-2 N Gene Negative; SARS-CoV-2 S Gene Negative; SARS-CoV-2 by NAA Not Detected (NotDetected); SARS-CoV-2 orf1ab Negative
--- NOTE | 2020-02-19 14:14 | PDOC.HOSPP ---
- Subjective Encounter Date: 02/19/20 Encounter Time: 13:00 Subjective: Patient is seen for a follow up today for a recurrent breast abscess. Surgery took her to OR this am for an I&D and biopsy of the area. Patient denies any pain or needs currently. Awaiting oncology and ID consultations. Chart and medications reviewed at this time. - Objective Vital Signs & Weight: Vital Signs (12 hours) Temp Pulse Resp BP Pulse Ox 02/19/20 08:00 97.6 F 99 17 144/91 H 96 02/19/20 03:01 98.3 F 94 16 131/60 97 Weight Admit Weight 253 lb 12.8 oz Weight 253 lb 12.8 oz I&O: 02/18/20 02/19/20 02/20/20 06:59 06:59 06:59 Intake Total 2200 Balance 2200 Result Diagrams: 02/19/20 04:26 02/19/20 04:26 Additional Labs: Accuchecks 02/19/20 02/19/20 02/18/20 10:43 06:04 20:22 POC Glucose 300 H 277 H 241 H Hospitalist ROS - Medication Medications: Active Medications Generic Name Dose Route Start Last Admin Trade Name Freq PRN Reason Stop Dose Admin Acetaminophen 650 mg 02/18/20 17:04 02/19/20 08:20 Acetaminophen 325 Mg Tab PO 650 mg Q4H PRN Administration Headache/Fever/Mild Pain (1-3) Enoxaparin Sodium 40 mg 02/19/20 09:00 02/19/20 08:20 Enoxaparin Sodium 40 Mg/0.4 Ml Syringe SC 40 mg 0900 VALERI Administration Escitalopram Oxalate 20 mg 02/19/20 09:00 02/19/20 08:20 Escitalopram Oxalate 20 Mg Tablet PO 20 mg DAILY VALERI Administration Sodium Chloride 1,000 mls @ 100 mls/hr 02/18/20 17:15 02/19/20 02:58 Normal Saline 0.9% IV 1,000 mls .Q10H VALERI Administration Vancomycin HCl 1.75 gm/ Sodium 500 mls @ 250 mls/hr 02/18/20 21:00 02/19/20 08:19 Chloride IVPB 500 mls Q12HR VALERI Administration Cefepime HCl 2 gm/ Sodium 100 mls @ 200 mls/hr 02/19/20 02:00 02/19/20 02:58 Chloride IVPB 100 mls 0200,1400 VALERI Administration Insulin Human Lispro 0 units 02/18/20 17:33 02/18/20 21:43 Humalog 300 Units/3 Ml Vial SC 2 unit .BEDTIME SLIDING SC PRN Administration Bedtime Correctional Scale Quetiapine Fumarate 300 mg 02/18/20 21:00 02/18/20 21:34 Quetiapine Fumarate 300 Mg Tab PO 300 mg HS VALERI Administration Simvastatin 10 mg 02/18/20 21:00 02/18/20 21:34 Simvastatin 10 Mg Tab PO 10 mg HS VALERI Administration Hosp A/P - Plan Breast abscess Continue IV vancomycin, cefepime, clindamycin Trend fever curve and WBC Pain control with morphine as needed General surgery consult, pt taken and had I&D and biopsy completed in OR this morning Awaiting Oncology consult, recommendations appreciated Awaiting ID consult, recommendations appreciated Severe sepsis without septic shock Continue Vancomycin, cefepime, clindamycin IV fluids -Follow blood cultures Trend fever curve, WBC Source control Hyponatremia -Gentle IVF -TSH Hypertension -Restart home medications Type 2 diabetes mellitus -Insulin sliding scale -ACHS glucose checks. Bipolar disorder -Continue home medications
[2020-02-19] MEDS: HYDROcodone/Acetaminophen 7.5/325 mg Tablet PO PRN (15:23)
[2020-02-19] MEDS: HumaLOG 300 UNITS/3 ML VIAL SC PRN (17:22)
[2020-02-19] MEDS: Docusate 100 MG CAP PO SCH (21:00)
[2020-02-19] MEDS: Simvastatin 10 MG TAB PO SCH (21:00)
[2020-02-19] MEDS: Famotidine 20 MG TAB PO SCH (21:00)
--- NOTE | 2020-02-19 21:08 | CON ---
DATE OF CONSULTATION: REASON FOR CONSULTATION: Recurrent breast abscess. HISTORY OF PRESENT ILLNESS: A 44-year-old with history of type 2 diabetes, who has had a five-year history of recurring breast left breast abscesses. They are usually periareolar and previously she had noticeable drainage through the nipple of a thick purulent exudate and immediately after drainage, the symptoms resolved and inflammatory process resolved. Usually that would happen after a short period of time, although she had been prescribed antimicrobial. She could never really tell if they were effective or not. The first admission occurred on January 28 this year, when she presented with a large left breast abscess, which was I and D'd in the emergency room. She had a lactic acid elevation and she was febrile, tachycardic, and the white cell count is elevated. She was given IV antimicrobial therapy and cultures remain negative and she was discharged home on oral antimicrobial therapy. The patient has had a breast ultrasound from September of 2014, which showed benign findings. The second one during the January admission, which showed a large complex noncystic mass at the upper outer quadrant of the left breast. She now has a recurrence and was admitted yesterday for the management of this recurrence. She did not have a fever on admission. She was a little bit tachycardic and she did have fever at least subjective fever at home. She had some nausea associated with it. No respiratory symptoms maybe a little bit of cough. No headaches. She has had sweats intermittently for the past year. No diarrhea. No genitourinary symptoms. PAST MEDICAL HISTORY: Obesity, hypertension, type 2 diabetes, chronic back pain, recurrent chronic left-sided periareolar breast abscess, and cholecystectomy. SOCIAL HISTORY: Chronic smoking, she is trying to cut down. Lives at home. works. 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 ALLERGIES: PENICILLIN, CODEINE, AND TRAMADOL. MEDICATION LIST: At the moment, she is on; 1. Cefepime. 2. Dextrose. 3. Lovenox. 4. Lexapro. 5. Glucagon. 6. Apresoline. 7. Insulin. 8. Levaquin. 9. Meperidine. 10. Morphine. 11. Promethazine. 12. Vancomycin. FAMILY HISTORY: Noncontributory. PHYSICAL EXAMINATION: VITAL SIGNS: T-max 98.3, blood pressure 140/90, heart rate 99, respiratory rate 17, and O2 saturation 96. SKIN: Exam of the left breast dressing was not removed. The surgical report is not yet dictated. Dr. Harden's evaluation was reviewed and there was a large inflammatory mass in the upper outer left breast, very tender. Healed incision from the previous I and D in January, very tender. Some adenopathy. No lymphadenopathy at the moment. HEENT: Ocular movements are conjugate. Oral cavity normal. Teeth are in good shape. NECK: Supple. No jugular vein distention. LUNGS: Symmetric clear breath sounds. HEART: S1 and S2. Regular rate. No S3 or S4. ABDOMEN: Soft, not distended or tender. She points to this left upper quadrant sensation that she has of a mass. I could not feel any abnormalities and she did have tenderness on palpation there. Although, she relates to some tenderness intermittently there in the left upper quadrant. No suprapubic distention. No ascites or organomegaly. EXTREMITIES: No joint inflammatory activity. No edema. Pulses 1+ in dorsalis pedis. Moves all extremities equally. NEUROLOGIC: Cognitive function appears to be intact. LABORATORY DATA: White cell count 16.9, hemoglobin 15, platelets 576 with normal differential. The latest WBC 12.5 and platelets are down to 485. Creatinine normal and sodium was 127 up to 134. Liver profile normal except for alkaline phosphatase 134, serum total protein 9.7, albumin 4.2, and globulin 5.5. Urinalysis with glycosuria, but nothing else abnormal. ALEXANDR-CoV-2 PCR negative. I have a bacterial culture from January, which was negative. We have a preliminary Gram stain from the current sample, which showed no organisms, many wbc's, many rbc's. Two sets of blood cultures and urine culture pending at this time. There is a CT of chest from February 18, 2020 and that showed a large left breast mass with skin thickening. There is a mildly prominent lymph nodes left axilla and fatty liver. There is an abdomen and pelvis CT from November 19, 2017 with cholecystectomy, fatty liver, constipation, and fibroid in the uterus. ASSESSMENT: Obesity, type 2 diabetes, hypertension, recurrent left-sided breast mass with inflammatory changes and drainage intermittently for the past five years, which has culminated now in two drainage procedures, the more recent one done yesterday by Dr. Harden. DISCUSSION: The differential diagnosis includes recurrent subareolar abscess of the breast with squamous metaplasia of the lactiferous ducts versus granulomatous mastitis. The clinical presentation is more consistent with recurrent subareolar abscess due to squamous metaplasia. Typically in this condition, the normal cuboid lining of the lactiferous ducts is replaced by squamous cells, which shed protein and other thick material that obstructs the ducts and causes recurrent abscesses. Usually the symptoms resolved after either extrusion of the thickened secretions through the nipple or surgical drainage. Typically, the cultures are negative in this situation, and then there is this waxing and waning of the inflammatory process over a period of many months to years. In comparison, the granulomatous mastitis is more of a chronic nodular mass like inflammatory process which is evaluated with biopsy to rule out malignancy and then the typical histology with noncaseating granulomas is identified. The management is somewhat different in the sense that the recurrent subareolar abscess requires complete excision of the abnormal ducts to prevent recurrence. Both entities can present with nipple inversion. So antimicrobials are not helpful in either condition and the solution to the first is a surgical solution. The second one is rare and it is not yet with well-defined therapeutic options. Secondary forms of granulomatous mastitis including sarcoidosis and vasculitis are less likely. Malignancy will have to be ruled out and we are waiting on the report from the surgeon to see if any sample was submitted for pathology. Job ID: [id number] [facility]
[2020-02-19] MEDS: ALPRAZolam 1 MG TAB PO PRN (21:50)
[2020-02-20] MEDS: Sodium Chloride 0.9% 1,000 ML IV SCH ×3 (00:09→19:10)
[2020-02-20] MEDS: HYDROcodone/Acetaminophen 7.5/325 mg Tablet PO PRN ×4 (00:10→22:58)
[2020-02-20] MEDS: HumaLOG 300 UNITS/3 ML VIAL SC PRN ×5 (00:11→20:33)
[2020-02-20] MEDS: Cefepime 2 GM in Sodium Chloride 0.9% 100 ML IVPB SCH ×2 (03:34→16:53)
[2020-02-20 04:57] LABS: #Eosinphils 0.1 thou/uL (0.0-0.7); #Lymphocytes 3.5 thou/uL (1.20-3.40); #Monocytes 0.6 thou/uL (0.11-0.59); %Basophils 0.4 % (0.0-1.0); %Eosinophils 0.7 % (0.0-10.0); %Lymphocytes 28.7 % (21.0-51.0); %Monocytes 4.7 % (0.0-10.0); %Neutrophils 65.5 % (42.0-75.0); Mean Corpuscular HGB CONC 33.2 g/dL (32.0-36.0); Mean Corpuscular Hemoglobin 30.7 pg (27.0-31.0); Mean Corpuscular Volume 92.5 fL (78.0-98.0); Mean Platelet Volume 7.3 fL (7.4-10.4); Platelet Count 462 thou/uL (130-400); RBC Distribution Width 12.5 % (11.5-14.5); White Blood Cell (WBC) Count 12.2 thou/uL (4.8-10.8)
[2020-02-20 05:18] LABS: Anion Gap 12 mmol/L (10-20); BUN (Urea Nitrogen) Less than 4 mg/dL (7.0-18.7); Calc. Creatinine Clearance 194 mL/min (70-130); Calcium 8.1 mg/dL (7.8-10.44); Carbon Dioxide 24 mmol/L (22-29); Chloride 103 mmol/L (98-107); Glucose 259 mg/dL (70-105); Potassium 3.9 mmol/L (3.5-5.1); Sodium 135 mmol/L (136-145)
[2020-02-20 08:36] LABS: Vancomycin, Trough 13.7 ug/mL
[2020-02-20] MEDS: Escitalopram Oxalate 20 mg Tablet PO SCH (09:15)
[2020-02-20] MEDS: Famotidine 20 MG TAB PO SCH ×2 (09:15→20:26)
[2020-02-20] MEDS: Enoxaparin Sodium 40 MG/0.4 ML SYRINGE SC SCH (09:15)
[2020-02-20] MEDS: Docusate 100 MG CAP PO SCH ×2 (09:15→20:26)
[2020-02-20] MEDS: Morphine 2 MG/ML VIAL SLOW IVP PRN ×3 (09:26→15:17)
--- NOTE | 2020-02-20 10:47 | PDOC.HOSPP ---
- Subjective Encounter Date: 02/20/20 Encounter Time: 09:00 Subjective: Patient seen this morning for follow-up on a breast abscess. She had an I&D yesterday in the OR and infectious disease discussed treatment plans with her last night. Oncology consultation has been deferred at this time as there is not a definite diagnosis of cancer. Currently awaiting biopsy results. Wound care team to see patient today to address her surgical site. Patient states she was in a great deal of pain last night but was able to be relieved with the morphine. - Objective Vital Signs & Weight: Vital Signs (12 hours) Temp Pulse Resp BP Pulse Ox 02/20/20 07:55 97.4 F L 99 18 146/75 H 100 02/20/20 03:46 97.7 F 90 12 111/55 L 97 Weight Admit Weight 253 lb 12.8 oz Weight 250 lb 14.4 oz I&O: 02/19/20 02/20/20 02/21/20 06:59 06:59 06:59 Intake Total 2200 1280 1160 Balance 2200 1280 1160 Result Diagrams: 02/20/20 04:16 02/20/20 04:16 Additional Labs: Accuchecks 02/20/20 02/19/20 02/19/20 06:12 20:30 16:46 POC Glucose 265 H 315 H 278 H 02/19/20 02/18/20 10:43 20:22 POC Glucose 300 H 241 H EKG Reviewed by me: Yes Hospitalist ROS - Medication Medications: Active Medications Generic Name Dose Route Start Last Admin Trade Name Freq PRN Reason Stop Dose Admin Acetaminophen 650 mg 02/18/20 17:04 02/19/20 08:20 Acetaminophen 325 Mg Tab PO 650 mg Q4H PRN Administration Headache/Fever/Mild Pain (1-3) Hydrocodone Bitart/Acetaminophen 2 tab 02/19/20 12:13 02/20/20 07:10 Hydrocodone/Acetaminophen 7.5/325 Mg Tablet PO 2 tab Q6H PRN Administration Severe Pain (7-10) Alprazolam 2 mg 02/18/20 17:32 02/19/20 21:50 Alprazolam 1 Mg Tab PO 2 mg TID PRN Administration Anxiety Docusate Sodium 100 mg 02/19/20 21:00 02/20/20 09:15 Docusate 100 Mg Cap PO 100 mg BID VALERI Administration Enoxaparin Sodium 40 mg 02/19/20 09:00 02/20/20 09:15 Enoxaparin Sodium 40 Mg/0.4 Ml Syringe SC 40 mg 0900 VALERI Administration Escitalopram Oxalate 20 mg 02/19/20 09:00 02/20/20 09:15 Escitalopram Oxalate 20 Mg Tablet PO 20 mg DAILY VALERI Administration Famotidine 20 mg 02/19/20 21:00 02/20/20 09:15 Famotidine 20 Mg Tab PO 20 mg BID VALERI Administration Sodium Chloride 1,000 mls @ 100 mls/hr 02/18/20 17:15 02/20/20 09:16 Normal Saline 0.9% IV 1,000 mls .Q10H VALERI Administration Cefepime HCl 2 gm/ Sodium 100 mls @ 200 mls/hr 02/19/20 02:00 02/20/20 03:34 Chloride IVPB 100 mls 0200,1400 VALERI Administration Vancomycin HCl 2 gm/ Sodium 500 mls @ 250 mls/hr 02/20/20 09:00 02/20/20 09:16 Chloride IVPB 500 mls 0900,2100 VALERI Administration Insulin Human Lispro 0 units 02/18/20 17:33 02/20/20 07:19 Humalog 300 Units/3 Ml Vial SC 4 unit .MILD SLIDING SCALE PRN Administration Mild Correctional Scale Insulin Human Lispro 0 units 02/18/20 17:33 02/20/20 00:11 Humalog 300 Units/3 Ml Vial SC 4 unit .BEDTIME SLIDING SC PRN Administration Bedtime Correctional Scale Morphine Sulfate 2 mg 02/19/20 12:13 02/20/20 09:26 Morphine 2 Mg/Ml Vial SLOW IVP 2 mg Q2H PRN Administration Moderate Pain (4-6) Quetiapine Fumarate 300 mg 02/18/20 21:00 02/19/20 20:59 Quetiapine Fumarate 300 Mg Tab PO 300 mg HS VALERI Administration Simvastatin 10 mg 02/18/20 21:00 02/19/20 21:00 Simvastatin 10 Mg Tab PO 10 mg HS VALERI Administration - Exam General Appearance: NAD, awake alert Heart: RRR, no murmur, no gallops, no rubs, normal peripheral pulses Respiratory: CTAB, no wheezes, no rales, no ronchi, normal chest expansion Gastrointestinal: soft, non-tender, non-distended, normal bowel sounds Psychiatric: normal affect, normal behavior Hosp A/P - Plan Breast abscess Continue IV vancomycin, cefepime, clindamycin Trend fever curve and WBC Pain control with morphine as needed Severe sepsis without septic shock Continue Vancomycin, cefepime, clindamycin IV fluids -Follow blood cultures Trend fever curve, WBC Source control Okay to downgrade to surgical floor and DC telemetry Hyponatremia -Gentle IVF -Currently 135 this a.m. which is an improvement Hypertension -Blood pressures have been stable overnight Continue home medications Type 2 diabetes mellitus -Insulin sliding scale -ACHS glucose checks. Bipolar disorder -Continue home medications
[2020-02-20] MEDS: Acetaminophen 325 MG TAB PO PRN (11:43)
[2020-02-20] MEDS: Vancomycin HCl 1.75 GM in Sodium Chloride 0.9% 500 ML IVPB SCH (11:47)
[2020-02-20] MEDS: metFORMIN 500 MG TAB PO SCH (16:53)
[2020-02-20] MEDS: Cyclobenzaprine 10 MG TAB PO PRN (16:53)
--- NOTE | 2020-02-20 17:29 | PRG ---
DATE OF SERVICE: 02/20/2020 SUBJECTIVE: The patient reports that dressing change was extremely painful, but they have the wound VAC on now. She is doing okay. OBJECTIVE: VITAL SIGNS: Temperature is 97.6, pulse 101, blood pressure 147/72. SKIN: There is still some erythema to the breast. LABORATORY DATA: White counts 12, hemoglobin and hematocrit 12 and 36, platelet count 462. Electrolytes are okay. Nothing growing out of that despite how purulent fluid was. ASSESSMENT: Left breast abscess. PLAN: Continue wound care. Job ID: [id number]
[2020-02-20] MEDS: Morphine 4 MG/ML VIAL SLOW IVP PRN ×3 (17:55→22:58)
[2020-02-20] MEDS: ALPRAZolam 1 MG TAB PO PRN (20:27)
[2020-02-20] MEDS ORDERED: diphenhydrAMINE 25 MG in Sodium Chloride 0.9% 50 ML IVPB SCH (20:30)
[2020-02-20] MEDS ORDERED: diphenhydrAMINE 50 MG/ML VIAL IVP SCH (20:45)
[2020-02-20] MEDS: Simvastatin 10 MG TAB PO SCH (21:47)
[2020-02-21] MEDS: Cefepime 2 GM in Sodium Chloride 0.9% 100 ML IVPB SCH ×2 (01:25→14:41)
[2020-02-21] MEDS: Morphine 2 MG/ML VIAL SLOW IVP PRN ×2 (01:28→04:12)
[2020-02-21 05:25] LABS: #Eosinphils 0.2 thou/uL (0.0-0.7); #Lymphocytes 2.5 thou/uL (1.20-3.40); #Monocytes 0.5 thou/uL (0.11-0.59); #Neutrophils 4.5 thou/uL (1.40-6.50); %Basophils 0.2 % (0.0-1.0); %Eosinophils 2.3 % (0.0-10.0); %Lymphocytes 32.7 % (21.0-51.0); %Monocytes 6.4 % (0.0-10.0); %Neutrophils 58.5 % (42.0-75.0); Hemoglobin 11.7 g/dL (12.0-16.0); Mean Corpuscular HGB CONC 31.5 g/dL (32.0-36.0); Mean Corpuscular Volume 95.5 fL (78.0-98.0); Mean Platelet Volume 7.6 fL (7.4-10.4); Platelet Count 437 thou/uL (130-400); RBC Distribution Width 12.7 % (11.5-14.5); Red Blood Cell (RBC) Count 3.89 mill/uL (4.20-5.40); White Blood Cell (WBC) Count 7.6 thou/uL (4.8-10.8)
[2020-02-21] MEDS: HumaLOG 300 UNITS/3 ML VIAL SC PRN (05:32)
[2020-02-21] MEDS: Sodium Chloride 0.9% 1,000 ML IV SCH ×2 (05:53→13:03)
[2020-02-21 06:09] LABS: Anion Gap 15 mmol/L (10-20); BUN (Urea Nitrogen) 4 mg/dL (7.0-18.7); Calc. Creatinine Clearance 183 mL/min (70-130); Calcium 7.8 mg/dL (7.8-10.44); Carbon Dioxide 18 mmol/L (22-29); Chloride 106 mmol/L (98-107); Glucose 265 mg/dL (70-105); Potassium 4.7 mmol/L (3.5-5.1); Sodium 134 mmol/L (136-145)
--- NOTE | 2020-02-21 07:43 | OP ---
DATE OF PROCEDURE: 02/19/2020 PREOPERATIVE DIAGNOSIS: Deep left breast abscess. PROCEDURE PERFORMED: I and D and biopsy of left breast abscess. INDICATIONS: This is a 44-year-old female, who has had a breast abscess in the past, developed a mass in the left breast, which became increasingly larger and more painful. CT scan showed a complex mass. A limited I and D was done in the ER a few days ago with minimal response. FINDINGS: This abscess was almost on the chest wall, it is approximately 6 cm in diameter, contained yellow thick purulent fluid, sent for culture. DESCRIPTION OF PROCEDURE: After informed consent was obtained, the patient was taken to the operating room and given general endotracheal anesthesia, placed in the supine position. Her left breast was prepped and draped in usual fashion. An elliptical incision was performed to include the previous incision site, some skin of the areola, and breast tissue down to include the anterior capsule of the abscess. This was marked with a suture superiorly on the skin. Cultures were obtained of the purulent fluid. This was then irrigated and aspirated. Hemostasis achieved with electrocautery as well as Josiah powder as she was given Lovenox this morning. The wound was packed open with wide mesh gauze, sterile bandage applied. The patient tolerated the procedure well, transferred to Recovery in fair condition. Job ID: [id number]
[2020-02-21] MEDS ORDERED: Dextrose 5% in Water 1,000 ML IV PRN (08:52)
[2020-02-21] MEDS ORDERED: Dextrose 50% Abboject 50 ML SYRINGE SLOW IVP PRN (08:52)
[2020-02-21] MEDS: Docusate 100 MG CAP PO SCH ×2 (09:37→21:15)
[2020-02-21] MEDS: metFORMIN 500 MG TAB PO SCH ×2 (09:37→16:50)
[2020-02-21] MEDS: Famotidine 20 MG TAB PO SCH ×2 (09:38→21:15)
[2020-02-21] MEDS: Escitalopram Oxalate 20 mg Tablet PO SCH (09:38)
[2020-02-21] MEDS: HYDROcodone/Acetaminophen 7.5/325 mg Tablet PO PRN ×3 (09:38→21:14)
[2020-02-21] MEDS: Enoxaparin Sodium 40 MG/0.4 ML SYRINGE SC SCH (09:39)
[2020-02-21] MEDS: Morphine 4 MG/ML VIAL SLOW IVP PRN ×4 (11:52→23:27)
--- NOTE | 2020-02-21 12:23 | PDOC.HOSPP ---
- Subjective Encounter Date: 02/21/20 Encounter Time: 11:30 Subjective: Patient doing well. Left breast examined. She has a wound VAC. - Objective Vital Signs & Weight: Vital Signs (12 hours) Temp Pulse Resp BP Pulse Ox 02/21/20 11:37 98.2 F 103 H 18 150/97 H 98 02/21/20 07:18 97.7 F 96 18 139/87 98 02/21/20 04:15 97.7 F 100 16 108/69 99 Weight Admit Weight 253 lb 12.8 oz Weight 250 lb 14.4 oz I&O: 02/20/20 02/21/20 02/22/20 06:59 06:59 06:59 Intake Total 1280 3710 Balance 1280 3710 Result Diagrams: 02/21/20 05:07 02/21/20 05:07 Additional Labs: Accuchecks 02/21/20 02/21/20 02/20/20 11:36 05:31 20:32 POC Glucose 278 H 235 H 239 H 02/20/20 16:45 POC Glucose 257 H Hospitalist ROS - Medication Medications: Active Medications Generic Name Dose Route Start Last Admin Trade Name Freq PRN Reason Stop Dose Admin Acetaminophen 650 mg 02/18/20 17:04 02/20/20 11:43 Acetaminophen 325 Mg Tab PO 650 mg Q4H PRN Administration Headache/Fever/Mild Pain (1-3) Hydrocodone Bitart/Acetaminophen 2 tab 02/19/20 12:13 02/21/20 09:38 Hydrocodone/Acetaminophen 7.5/325 Mg Tablet PO 2 tab Q6H PRN Administration Severe Pain (7-10) Alprazolam 2 mg 02/18/20 17:32 02/20/20 20:27 Alprazolam 1 Mg Tab PO 2 mg TID PRN Administration Anxiety Cyclobenzaprine HCl 10 mg 02/20/20 15:27 02/20/20 16:53 Cyclobenzaprine 10 Mg Tab PO 10 mg TID PRN Administration Muscle Spasm Docusate Sodium 100 mg 02/19/20 21:00 02/21/20 09:37 Docusate 100 Mg Cap PO 100 mg BID VALERI Administration Enoxaparin Sodium 40 mg 02/19/20 09:00 02/21/20 09:39 Enoxaparin Sodium 40 Mg/0.4 Ml Syringe SC 40 mg 0900 VALERI Administration Escitalopram Oxalate 20 mg 02/19/20 09:00 02/21/20 09:38 Escitalopram Oxalate 20 Mg Tablet PO 20 mg DAILY VALERI Administration Famotidine 20 mg 02/19/20 21:00 02/21/20 09:38 Famotidine 20 Mg Tab PO 20 mg BID VALERI Administration Sodium Chloride 1,000 mls @ 100 mls/hr 02/18/20 17:15 02/21/20 05:53 Normal Saline 0.9% IV Not Given .Q10H VALERI Cefepime HCl 2 gm/ Sodium 100 mls @ 200 mls/hr 02/19/20 02:00 02/21/20 01:25 Chloride IVPB 100 mls 0200,1400 VALERI Administration Vancomycin HCl 2 gm/ Sodium 500 mls @ 250 mls/hr 02/20/20 09:00 02/21/20 10:32 Chloride IVPB 500 mls 0900,2100 VALERI Administration Insulin Human Lispro 0 units 02/18/20 17:33 02/20/20 20:33 Humalog 300 Units/3 Ml Vial SC 2 unit .BEDTIME SLIDING SC PRN Administration Bedtime Correctional Scale Metformin HCl 1,000 mg 02/20/20 17:00 02/21/20 09:37 Metformin 500 Mg Tab PO 1,000 mg BID-WM VALERI Administration Morphine Sulfate 2 mg 02/19/20 12:13 02/21/20 04:12 Morphine 2 Mg/Ml Vial SLOW IVP 2 mg Q2H PRN Administration Moderate Pain (4-6) Morphine Sulfate 4 mg 02/19/20 12:13 02/21/20 11:52 Morphine 4 Mg/Ml Vial SLOW IVP 4 mg Q2H PRN Administration Severe Pain (7-10) Ondansetron HCl 4 mg 02/19/20 12:13 02/20/20 19:09 Ondansetron Pf 4 Mg/2 Ml Vial IVP 4 mg Q6H PRN Administration Nausea/Vomiting Quetiapine Fumarate 300 mg 02/18/20 21:00 02/20/20 20:26 Quetiapine Fumarate 300 Mg Tab PO 300 mg HS VALERI Administration Simvastatin 10 mg 02/18/20 21:00 02/20/20 21:47 Simvastatin 10 Mg Tab PO 10 mg HS VALERI Administration - Exam General Appearance: NAD, awake alert Eye: PERRL ENT: normocephalic atraumatic Neck: supple Heart: RRR Respiratory: CTAB Respiratory - other findings: Status post IND of left breast abscess wound VAC in place Gastrointestinal: soft, normal bowel sounds Extremities: 1+ LE edema Neurological: cranial nerve grossly intact, no focal deficits Psychiatric: A&O x 3 Hosp A/P - Plan Left breast abscess Status post IND on February 18 -General surgery and infectious disease following. -On cefepime and vancomycin Severe sepsis without septic shock Continue Vancomycin, cefepime, clindamycin IV fluids -Follow blood cultures-------------> negative [id number] Trend fever curve, WBC Source control Okay to downgrade to surgical floor and DC telemetry Hyponatremia Proving Hypertension -Blood pressures have been stable overnight Continue home medications Type 2 diabetes mellitus -Insulin sliding scale --she is on Metformin thousand twice daily -[facility] glucose checks. Bipolar disorder -Continue home medications--- Seroquel Xanax
--- NOTE | 2020-02-21 12:42 | PRG ---
DATE OF SERVICE: 02/21/2020 SUBJECTIVE: She states that still a lot of pain, but is getting better. She has a wound VAC on. OBJECTIVE: VITAL SIGNS: Temperature is 98.2. She had a heart rate of 103, blood pressure is 150/97. SKIN: Looks much better. The erythema has almost gone. LABORATORY DATA: Her white count is down to 7.6, her hemoglobin and hematocrit are 11 and 37, platelet count 437. Nothing is really grown out of the cultures, even though it was thick purulent fluid. ASSESSMENT: Status post drainage of left breast abscess. PLAN: Awaiting Case Management to try and arrange for outpatient wound care. Job ID: [id number]
[2020-02-21] MEDS: Promethazine HCl 25 MG/ML VIAL IM PRN ×2 (13:10→20:21)
[2020-02-21] MEDS: HumaLOG 300 UNITS/3 ML VIAL SC SCH ×2 (13:14→17:07)
[2020-02-21] MEDS: diphenhydrAMINE 25 MG CAP PO PRN (19:44)
[2020-02-21 20:27] LABS: Vancomycin, Trough 15.9 ug/mL
[2020-02-21] MEDS: Simvastatin 10 MG TAB PO SCH (21:15)
[2020-02-21] MEDS: ALPRAZolam 1 MG TAB PO PRN (22:11)
[2020-02-22] MEDS: HYDROcodone/Acetaminophen 7.5/325 mg Tablet PO PRN ×3 (02:45→20:39)
[2020-02-22] MEDS: Cefepime 2 GM in Sodium Chloride 0.9% 100 ML IVPB SCH ×2 (02:45→15:02)
[2020-02-22] MEDS: Sodium Chloride 0.9% 1,000 ML IV SCH ×3 (02:45→22:26)
[2020-02-22] MEDS: diphenhydrAMINE 25 MG CAP PO PRN ×2 (02:52→22:21)
[2020-02-22 05:23] LABS: #Eosinphils 0.3 thou/uL (0.0-0.7); #Lymphocytes 2.8 thou/uL (1.20-3.40); #Monocytes 0.4 thou/uL (0.11-0.59); #Neutrophils 6.5 thou/uL (1.40-6.50); %Basophils 0.5 % (0.0-1.0); %Eosinophils 2.7 % (0.0-10.0); %Lymphocytes 27.8 % (21.0-51.0); %Monocytes 4.3 % (0.0-10.0); %Neutrophils 64.7 % (42.0-75.0); Hemoglobin 11.3 g/dL (12.0-16.0); Mean Corpuscular Hemoglobin 30.4 pg (27.0-31.0); Mean Corpuscular Volume 95.1 fL (78.0-98.0); Mean Platelet Volume 7.7 fL (7.4-10.4); Platelet Count 449 thou/uL (130-400); RBC Distribution Width 13.2 % (11.5-14.5); Red Blood Cell (RBC) Count 3.72 mill/uL (4.20-5.40); White Blood Cell (WBC) Count 10.1 thou/uL (4.8-10.8)
[2020-02-22 05:44] LABS: Anion Gap 14 mmol/L (10-20); BUN (Urea Nitrogen) 4 mg/dL (7.0-18.7); Calc. Creatinine Clearance 207 mL/min (70-130); Calcium 7.9 mg/dL (7.8-10.44); Carbon Dioxide 21 mmol/L (22-29); Chloride 106 mmol/L (98-107); Glucose 215 mg/dL (70-105); Potassium 3.8 mmol/L (3.5-5.1); Sodium 137 mmol/L (136-145)
[2020-02-22] MEDS: HumaLOG 300 UNITS/3 ML VIAL SC SCH ×2 (05:55→11:26)
[2020-02-22] MEDS: Morphine 4 MG/ML VIAL SLOW IVP PRN ×3 (05:56→16:54)
[2020-02-22] MEDS: Enoxaparin Sodium 40 MG/0.4 ML SYRINGE SC SCH (08:43)
[2020-02-22] MEDS: Escitalopram Oxalate 20 mg Tablet PO SCH (08:44)
[2020-02-22] MEDS: Docusate 100 MG CAP PO SCH ×2 (08:44→20:38)
[2020-02-22] MEDS: metFORMIN 500 MG TAB PO SCH ×2 (08:44→17:00)
[2020-02-22] MEDS: Famotidine 20 MG TAB PO SCH ×2 (08:44→20:38)
--- NOTE | 2020-02-22 14:15 | PRG ---
DATE OF SERVICE: 02/22/2020 SUBJECTIVE: The patient still has intermittent pain in the breast, requiring narcotics. Still has a wound VAC on place. She is awaiting approval for home wound care. OBJECTIVE: VITAL SIGNS: She is afebrile, pulse 100, blood pressure 149/95. BREAST: Looks fine. There is no cellulitis. LABORATORY DATA: Her white count is normal. H and H 11 and 35, platelet count 449. The micro is really not growing anything. ASSESSMENT: Status post I and D of large left breast abscess, awaiting outpatient wound care approval. PLAN: Continue wound care. We will saline lock IV. Job ID: [id number]
[2020-02-22] MEDS: ALPRAZolam 1 MG TAB PO PRN (15:10)
[2020-02-22] MEDS: Cyclobenzaprine 10 MG TAB PO PRN (15:10)
--- NOTE | 2020-02-22 15:53 | PDOC.HOSPP ---
- Subjective Encounter Date: 02/22/20 Subjective: Seen and examined at bedside in no acute distress. Remains with intermittent pain that can be as severe as 7-8/10 and still requiring parenteral use of Morphine. Patient is s/p I&D of large left breast abscess currently awaiting outpatient wound care approval. Denies any acute complains or overnight events. - Objective Vital Signs & Weight: Vital Signs (12 hours) Temp Pulse Resp BP Pulse Ox 02/22/20 15:11 98.1 F 94 16 152/94 H 99 02/22/20 10:54 98.3 F 101 H 16 149/95 H 98 02/22/20 08:00 98 02/22/20 07:35 97.9 F 96 16 147/95 H 98 Weight Admit Weight 253 lb 12.8 oz Weight 250 lb 14.4 oz I&O: 02/21/20 02/22/20 02/23/20 06:59 06:59 06:59 Intake Total 3710 4795 Balance 3710 4795 Result Diagrams: 02/22/20 05:02 02/22/20 05:02 Additional Labs: Accuchecks 02/22/20 02/22/20 02/21/20 10:56 05:48 21:03 POC Glucose 254 H 206 H 172 H 02/21/20 16:37 POC Glucose 164 H Hospitalist ROS - Review of Systems Constitutional: denies: fever, chills, sweats, weakness, malaise, other Respiratory: denies: cough, dry, shortness of breath, hemoptysis, SOB with exc ertion, pleuritic pain, sputum, wheezing, other Cardiovascular: denies: chest pain, palpitations, orthopnea, paroxysmal noc. dyspnea, edema, light headedness, other Gastrointestinal: denies: nausea, vomiting, abdominal pain, diarrhea, constipation, melena, hematochezia, other Skin: reports: other. denies: rash (I&D area with wound vac in place, no evidence of cellulitis) - Medication Medications: Active Medications Generic Name Dose Route Start Last Admin Trade Name Freq PRN Reason Stop Dose Admin Acetaminophen 650 mg 02/18/20 17:04 02/20/20 11:43 Acetaminophen 325 Mg Tab PO 650 mg Q4H PRN Administration Headache/Fever/Mild Pain (1-3) Hydrocodone Bitart/Acetaminophen 2 tab 02/19/20 12:13 02/22/20 11:23 Hydrocodone/Acetaminophen 7.5/325 Mg Tablet PO 2 tab Q6H PRN Administration Severe Pain (7-10) Alprazolam 2 mg 02/18/20 17:32 02/22/20 15:10 Alprazolam 1 Mg Tab PO 2 mg TID PRN Administration Anxiety Cyclobenzaprine HCl 10 mg 02/20/20 15:27 02/22/20 15:10 Cyclobenzaprine 10 Mg Tab PO 10 mg TID PRN Administration Muscle Spasm Diphenhydramine HCl 25 mg 02/21/20 19:27 02/22/20 02:52 Diphenhydramine 25 Mg Cap PO 25 mg Q6H PRN Administration .ITCHING Docusate Sodium 100 mg 02/19/20 21:00 02/22/20 08:44 Docusate 100 Mg Cap PO 100 mg BID VALERI Administration Enoxaparin Sodium 40 mg 02/19/20 09:00 02/22/20 08:43 Enoxaparin Sodium 40 Mg/0.4 Ml Syringe SC 40 mg 0900 VALERI Administration Escitalopram Oxalate 20 mg 02/19/20 09:00 02/22/20 08:44 Escitalopram Oxalate 20 Mg Tablet PO 20 mg DAILY VALERI Administration Famotidine 20 mg 02/19/20 21:00 02/22/20 08:44 Famotidine 20 Mg Tab PO 20 mg BID VALERI Administration Hydralazine HCl 10 mg 02/19/20 12:13 02/21/20 21:29 Hydralazine 20 Mg/Ml Vial SLOW IVP 10 mg Q4H PRN Administration SBP > 170 or DBP > 100 Sodium Chloride 1,000 mls @ 100 mls/hr 02/18/20 17:15 02/22/20 11:25 Normal Saline 0.9% IV 1,000 mls .Q10H VALERI Administration Cefepime HCl 2 gm/ Sodium 100 mls @ 200 mls/hr 02/19/20 02:00 02/22/20 15:02 Chloride IVPB 100 mls 0200,1400 VALERI Administration Vancomycin HCl 2 gm/ Sodium 500 mls @ 250 mls/hr 02/20/20 09:00 02/22/20 08:48 Chloride IVPB 500 mls 0900,2100 VALERI Administration Insulin Human Lispro 0 units 02/18/20 17:33 02/20/20 20:33 Humalog 300 Units/3 Ml Vial SC 2 unit .BEDTIME SLIDING SC PRN Administration Bedtime Correctional Scale Insulin Human Lispro 0 units 02/21/20 09:00 02/22/20 11:26 Humalog 300 Units/3 Ml Vial SC 4 unit .MILD SLIDING SCALE VALERI Administration Metformin HCl 1,000 mg 02/20/20 17:00 02/22/20 08:44 Metformin 500 Mg Tab PO 1,000 mg BID-WM VALERI Administration Morphine Sulfate 2 mg 02/19/20 12:13 02/21/20 04:12 Morphine 2 Mg/Ml Vial SLOW IVP 2 mg Q2H PRN Administration Moderate Pain (4-6) Morphine Sulfate 4 mg 02/19/20 12:13 02/22/20 08:56 Morphine 4 Mg/Ml Vial SLOW IVP 4 mg Q2H PRN Administration Severe Pain (7-10) Promethazine HCl 12.5 mg 02/19/20 12:13 02/21/20 20:21 Promethazine Hcl 25 Mg/Ml Vial IM 12.5 mg Q4H PRN Administration Nausea/Vomiting Quetiapine Fumarate 300 mg 02/18/20 21:00 02/21/20 21:16 Quetiapine Fumarate 300 Mg Tab PO 300 mg HS VALERI Administration Simvastatin 10 mg 02/18/20 21:00 02/21/20 21:15 Simvastatin 10 Mg Tab PO 10 mg HS VALERI Administration - Exam General Appearance: NAD, awake alert Neck: supple, symmetric, no JVD, no thyromegaly, no lymphadenopathy, no carotid bruit Heart: RRR, no murmur, no gallops, no rubs, normal peripheral pulses Respiratory: CTAB, no wheezes, no rales, no ronchi, normal chest expansion, no tachypnea, normal percussion Gastrointestinal: soft, non-tender, non-distended, normal bowel sounds, no palpable masses, no hepatomegaly, no splenomegaly, no bruit Skin - other findings: Breast s/p I&D with wound vac in place, no evidence of cellulitis Musculoskeletal: normal tone, normal strength, no muscle wasting Hosp A/P - Plan A/P: S/p I&D to left breast for large abscess currently doing well not septic receiving wound care, working on controlling her pain. # Left breast abscess: S/p I&D currently with wound vac in place. No evidence of cellulitis. Remains on broad spectrum antibiotics. Cultures remain negative at this point. Will narrow antibiotics in 24 hrs if she remains stable and afebrile. Awaiting outpatient wound care plan to be approved. Surgery follows. # Hypertension: Slightly elevated likely in setting of pain. Resume home dose lisinopril. # DM: Continue with ISS plus metformin. Needs close outpatient follow up. # Bipolar disorder: Continue with current psych medications. DISPOSITION: Improving but still with intermittent intense pain. Remains on broad spectrum ABX which will be adjusted based on progression and cultures. Awaiting finalizing outpatient wound care plan.
[2020-02-22] MEDS: Simvastatin 10 MG TAB PO SCH (20:38)
[2020-02-22] MEDS: Morphine 2 MG/ML VIAL SLOW IVP PRN (22:21)
[2020-02-22] MEDS: HumaLOG 300 UNITS/3 ML VIAL SC PRN (23:08)
[2020-02-23] MEDS: Cefepime 2 GM in Sodium Chloride 0.9% 100 ML IVPB SCH (01:59)
[2020-02-23] MEDS: HYDROcodone/Acetaminophen 7.5/325 mg Tablet PO PRN ×3 (02:45→15:06)
[2020-02-23] MEDS: HumaLOG 300 UNITS/3 ML VIAL SC SCH (05:33)
[2020-02-23] MEDS: Sodium Chloride 0.9% 1,000 ML IV SCH (06:02)
[2020-02-23] MEDS: metFORMIN 500 MG TAB PO SCH (08:44)
[2020-02-23] MEDS: Escitalopram Oxalate 20 mg Tablet PO SCH (08:45)
[2020-02-23] MEDS: Famotidine 20 MG TAB PO SCH (08:45)
[2020-02-23] MEDS: Docusate 100 MG CAP PO SCH (08:45)
[2020-02-23] MEDS: Enoxaparin Sodium 40 MG/0.4 ML SYRINGE SC SCH (08:49)
[2020-02-23] MEDS ORDERED: Clindamycin 150 MG CAP PO SCH (09:00)
[2020-02-23] MEDS: Acetaminophen 325 MG TAB PO PRN (12:42)
[2020-02-23] MEDS: Cyclobenzaprine 10 MG TAB PO PRN (12:43)
[2020-02-23] MEDS: HumaLOG 300 UNITS/3 ML VIAL SC PRN (13:03)
--- NOTE | 2020-02-23 14:08 | PDOC.DS.DS ---
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 She was initially seen and outpatient ED and underwent partial I&D and started on antibiotics however her symptoms continued to worsen. During this admission she was treated with broad spectrum antibiotics and seen by surgery for I&D in the OR. She showed progressive improvement after I&D and wound vac placement. Currently without evidence of sepsis or cellulitis to the area. Only complain remains some tenderness of incision area. She is being discharged on oral antibiotics and her usual home medications. Outpatient wound care has been arranged by our CM. She will follow up with surgery at their discretion. Medically stable to transition her care to outpatient basis. Pertinent Studies: Negative cultures. Procedures: I&D to left breast by surgery. Resuscitation Status: 02/18/20 17:04 Resuscitation Status Routine Co-Sign Provider: Resuscitation Status: FULL: Full Resuscitation - Labs Lab Results: 02/22/20 05:02 02/22/20 05:02 Abnormal Lab Results - Last 48 hrs 02/22/20 05:02: Carbon Dioxide 21 L, BUN 4 L 02/22/20 05:02: RBC 3.72 L, Hgb 11.3 L, Hct 35.3 L, Plt Count 449 H Microbiology - Entire Visit 02/19/20 11:55 Breast - Swab Bacterial Culture - Preliminary 02/19/20 11:55 Breast - Swab Anaerobic Culture - Preliminary NO ANAEROBES ISOLATED IN 4 DAYS 02/18/20 13:36 Venous blood - Left Hand Blood Culture - Preliminary NO GROWTH AT 48 HOURS 02/18/20 13:31 Venous blood - Right Arm Blood Culture - Preliminary NO GROWTH AT 48 HOURS 02/18/20 14:40 Urine voided Urine Culture - Final - Physical Exam Vitals: Vital Signs (12 hours) Temp Pulse Resp BP Pulse Ox 02/23/20 12:14 98.8 F 98 16 149/83 H 94 L 02/23/20 08:29 97.8 F 96 14 153/95 H 98 02/23/20 03:31 97.9 F 95 16 137/86 95 Weight Admit Weight 253 lb 12.8 oz Weight 250 lb 14.4 oz Physical Exam: The patient was seen and examined on the day of discharge. Problem - Discharge Plan Plan of Treatment: A/P: S/p I&D to left breast for large abscess currently doing well not septic receiving wound care, working on controlling her pain. # Left breast abscess: S/p I&D currently with wound vac in place. No evidence of cellulitis. Afebrile. Cultures remain negative at this point. Transitioned to PO ABX. Will follow up with surgery as outpatient. # Hypertension: Slightly elevated likely in setting of pain. Resumed home dose lisinopril. # DM: Continue with ISS plus metformin. Needs close outpatient follow up. Extensively counseled. # Bipolar disorder: Continue with current psych medications. - Time spent with Patient (mins): 30 Plan - Discharge Medications Prescriptions: Clindamycin [Cleocin] 300 mg PO Q8H 5 Days #15 cap HYDROcodone Bit/APAP 7.5/325 [[place]] 1 tab PO Q6H PRN 7 Days #30 tab PRN Reason: Moderate Pain (4-6) Home Medications: Medication Instructions Recorded Confirmed Type ALPRAZolam [Xanax] 2 mg PO TID PRN 01/29/20 02/18/20 History Cyclobenzaprine [Flexeril] 10 mg PO TID 01/29/20 02/18/20 History Escitalopram Oxalate 20 mg PO DAILY 01/29/20 02/18/20 History Lisinopril 10 mg PO QAM 01/29/20 02/18/20 History Lovastatin 20 mg PO HS 01/29/20 02/18/20 History QUEtiapine Fumarate [SEROquel] 400 mg PO HS 01/29/20 02/18/20 History metFORMIN [Glucophage] 1,000 mg PO BID-WM 01/29/20 02/18/20 History Clindamycin [Cleocin] 300 mg PO Q8H 5 Days #15 cap 02/23/20 Rx Cyclobenzaprine [Flexeril] 10 mg PO TID PRN tab 02/23/20 Rx Docusate [Colace] 100 mg PO BID cap 02/23/20 Rx HYDROcodone Bit/APAP 7.5/325 1 tab PO Q6H PRN 7 Days #30 tab 02/23/20 Rx [[place]] diphenhydrAMINE [Benadryl] 25 mg PO Q6H PRN cap 02/23/20 Rx metFORMIN [Glucophage] 1,000 mg PO BID-WM tab 02/23/20 Rx Allergies: ondansetron Allergy (Mild, Verified 02/20/20 22:16) Hives codeine Allergy (Verified 01/29/20 22:06) PER ER NOTES Penicillins Allergy (Verified 01/29/20 22:06) PER ER NOTES tramadol Allergy (Verified 01/29/20 22:06) PER ER NOTES - Discharge Instructions Discharge Instructions:: OUTPATIENT WOUND CARE - Follow up Plan Referrals: Wound Care - [place] [Outside] (Appointment scheduled for February 28 at 9:45am. ) Sharmaine Hines PA-C [Primary Care Provider] - Drake Harden Jr, MD [Active] - 14 Days Disposition: HOME HEALTH Quality - Care Measures CORE MEASURES:: N/A
[2020-02-23 16:28] VITALS: BP 161/96; TEMP 98.2
--- NOTE | 2020-02-24 11:05 | DIS ---
DATE OF ADMISSION: 02/18/2020 DATE OF DISCHARGE: 02/23/2020 DISCHARGE DIAGNOSIS: Left breast abscess, deep. PROCEDURES DURING ADMISSION: Incision and drainage of deep left breast abscess. HOSPITAL COURSE: The patient was admitted, given IV antibiotics, taken to the operating room, where she underwent drainage of this large abscess. Wound VAC was placed. The problem is she is unfunded, so we had to keep her here for few days to get outpatient wound care set up that has been arranged and she is discharged on doxycycline and hydrocodone. She will follow up with me in 2 weeks. We will continue outpatient wound care. Job ID: [id number]
== END 2020-02-23 19:39 | disposition home health service (06) | DRG 854 ==
LOC: ERS 13:15 → 2NO 16:18 → SJJU 02-20 14:48
PROVIDERS: ADMIT Internal Medicine; ATTEND Internal Medicine
PROC: 0H9U0ZZ Drainage of Left Breast, Open Approach (ICD-10-PCS; principal; 2020-02-19)
DX: A41.9 Sepsis, unspecified organism (principal); E87.1 Hypo-osmolality and hyponatremia; E87.2 Acidosis; Z68.41 Body mass index [BMI] 40.0-44.9, adult; N61.1 Abscess of the breast and nipple; Z20.828 Contact with and (suspected) exposure to other viral communicable diseases; I10 Essential (primary) hypertension; E78.5 Hyperlipidemia, unspecified; M54.5 Low back pain; G89.29 Other chronic pain; F41.9 Anxiety disorder, unspecified; F31.9 Bipolar disorder, unspecified; E11.65 Type 2 diabetes mellitus with hyperglycemia; R65.20 Severe sepsis without septic shock; F17.210 Nicotine dependence, cigarettes, uncomplicated; E66.01 Morbid (severe) obesity due to excess calories; Z79.84 Long term (current) use of oral hypoglycemic drugs; Z88.0 Allergy status to penicillin; Z88.5 Allergy status to narcotic agent; Z79.899 Other long term (current) drug therapy; Z90.49 Acquired absence of other specified parts of digestive tract
CPT/HCPCS: 36415; 36416; 71045; 71260; 80048; 80053; 80202; 81003; 81025; 83605; 85025; 87040; 87070; 87086; 87205; 87635; 88305; 88312; 88342; 96365; 96367; 96374; 96375; 96376; J0360; J0692; J1100; J1170; J1200; J1650; J2250; J2270; J2405; J2550; J2704; J3010; J3370; J3490; J7030; Q0163; Q9967; U0003

== ENCOUNTER 2020-07-05 10:45 | Inpatient (IN) | payer SELFPAY ==
[2020-07-05 13:59] LABS: #Basophils 0.1 thou/uL (0.0-0.2); #Eosinphils 0.1 thou/uL (0.0-0.7); #Lymphocytes 4.3 thou/uL (1.20-3.40); #Monocytes 0.7 thou/uL (0.11-0.59); #Neutrophils 13.3 thou/uL (1.40-6.50); %Basophils 0.8 % (0.0-1.0); %Eosinophils 0.6 % (0.0-10.0); %Lymphocytes 23.3 % (21.0-51.0); %Monocytes 3.8 % (0.0-10.0); %Neutrophils 71.5 % (42.0-75.0); Hemoglobin 13.6 g/dL (12.0-16.0); Mean Corpuscular Hemoglobin 30.9 pg (27.0-31.0); Mean Corpuscular Volume 93.9 fL (78.0-98.0); Mean Platelet Volume 7.7 fL (7.4-10.4); Platelet Count 429 thou/uL (130-400); RBC Distribution Width 13.5 % (11.5-14.5); White Blood Cell (WBC) Count 18.6 thou/uL (4.8-10.8)
[2020-07-05 14:19] LABS: ALT (SGPT) 23 U/L (8-55); AST (SGOT) 26 U/L (5-34); Albumin 3.8 g/dL (3.5-5.0); Alkaline Phosphatase 90 U/L (40-110); Anion Gap 15 mmol/L (10-20); BUN (Urea Nitrogen) 8 mg/dL (7.0-18.7); Bilirubin, Total 0.3 mg/dL (0.2-1.2); Calc. Creatinine Clearance 0 mL/min (70-130); Calcium 9.2 mg/dL (7.8-10.44); Carbon Dioxide 20 mmol/L (22-29); Chloride 102 mmol/L (98-107); Globulin 3.9 g/dL (2.4-3.5); Glucose 149 mg/dL (70-105); Potassium 4.1 mmol/L (3.5-5.1); Protein, Total 7.7 g/dL (6.0-8.3); Sodium 133 mmol/L (136-145)
[2020-07-05] MEDS ORDERED: HYDROcodone/Acetaminophen 5/325 mg Tablet ONE (14:22)
[2020-07-05] MEDS ORDERED: Ibuprofen 200 MG TAB ONE (14:23)
[2020-07-05] MEDS ORDERED: Clindamycin/D5W 600 mg/50 ml Premix Bag ONE (15:11)
[2020-07-05] MEDS ORDERED: Vancomycin 1 GM/200 ML BAG ONE (15:11)
[2020-07-05] MEDS ORDERED: Cefepime 1 GM VIAL ONE (15:11)
[2020-07-05] MEDS ORDERED: Fentanyl 100 MCG/2 ML VIAL ONE ×2 (16:40→18:49)
[2020-07-05] MEDS ORDERED: HumaLOG 300 UNITS/3 ML VIAL SC PRN ×2 (16:44)
[2020-07-05] MEDS ORDERED: Bisacodyl 10 MG SUPP PR PRN (16:44)
[2020-07-05] MEDS ORDERED: Dextrose 5% in Water 1,000 ML IV PRN (16:44)
[2020-07-05] MEDS ORDERED: Senokot S 8.6-50 MG TAB PO PRN (16:44)
[2020-07-05] MEDS ORDERED: Dextrose 50% Abboject 50 ML SYRINGE SLOW IVP PRN (16:44)
[2020-07-05] MEDS ORDERED: Guaifenesin DM 100-10/5 ML UDCUP PO PRN (16:44)
[2020-07-05] MEDS ORDERED: Calcium Carbonate 500 MG ChewTAB PO PRN (16:44)
[2020-07-05 16:53] LABS: Lactic Acid 2.2 mmol/L (0.5-2.2)
[2020-07-05] MEDS: Sodium Chloride 0.9% 1,000 ML IV SCH (21:52)
[2020-07-05] MEDS: Morphine 4 MG/ML VIAL SLOW IVP PRN (21:53)
[2020-07-05] MEDS: metFORMIN 500 MG TAB PO SCH (22:50)
[2020-07-05] MEDS: Simvastatin 10 MG TAB PO SCH (22:51)
[2020-07-05] MEDS: Acetaminophen 325 MG TAB PO PRN (22:52)
[2020-07-05] MEDS: Clindamycin/D5W 600 MG in Premix Bag 1 BAG IVPB SCH (22:52)
[2020-07-06] MEDS: Cefepime 1 GM in Sodium Chloride 0.9% 100 ML IVPB SCH ×2 (03:00→13:25)
[2020-07-06] MEDS: Morphine 4 MG/ML VIAL SLOW IVP PRN ×4 (06:07→21:23)
[2020-07-06] MEDS: Clindamycin/D5W 600 MG in Premix Bag 1 BAG IVPB SCH ×3 (06:10→23:49)
[2020-07-06 06:43] LABS: #Basophils 0.1 thou/uL (0.0-0.2); #Eosinphils 0.1 thou/uL (0.0-0.7); #Lymphocytes 2.5 thou/uL (1.20-3.40); #Monocytes 0.8 thou/uL (0.11-0.59); #Neutrophils 11.3 thou/uL (1.40-6.50); %Basophils 0.4 % (0.0-1.0); %Eosinophils 0.7 % (0.0-10.0); %Lymphocytes 16.9 % (21.0-51.0); %Monocytes 5.5 % (0.0-10.0); %Neutrophils 76.5 % (42.0-75.0); Hemoglobin 12.3 g/dL (12.0-16.0); Mean Corpuscular HGB CONC 32.1 g/dL (32.0-36.0); Mean Corpuscular Hemoglobin 30.3 pg (27.0-31.0); Mean Corpuscular Volume 94.4 fL (78.0-98.0); Platelet Count 364 thou/uL (130-400); RBC Distribution Width 13.4 % (11.5-14.5); Red Blood Cell (RBC) Count 4.05 mill/uL (4.20-5.40); White Blood Cell (WBC) Count 14.8 thou/uL (4.8-10.8)
[2020-07-06 06:52] LABS: SARS-CoV-2 PCR by NAA Not Detected (NotDetected)
[2020-07-06 07:04] LABS: Anion Gap 16 mmol/L (10-20); BUN (Urea Nitrogen) 9 mg/dL (7.0-18.7); Calc. Creatinine Clearance 171 mL/min (70-130); Calcium 8.1 mg/dL (7.8-10.44); Carbon Dioxide 19 mmol/L (22-29); Chloride 106 mmol/L (98-107); Glucose 184 mg/dL (70-105); Sodium 137 mmol/L (136-145)
[2020-07-06] MEDS: Lisinopril 10 MG TAB PO SCH (07:53)
[2020-07-06] MEDS: Escitalopram Oxalate 20 mg Tablet PO SCH (07:56)
[2020-07-06] MEDS: Acetaminophen 325 MG TAB PO PRN (08:39)
[2020-07-06] MEDS: Ondansetron PF 4 MG/2 ML Vial IVP PRN ×2 (08:40→21:23)
[2020-07-06] MEDS: Sodium Chloride 0.9% 1,000 ML IV SCH ×2 (09:10→21:09)
[2020-07-06 11:13] VITALS: BMI 45.3
[2020-07-06] MEDS: metFORMIN 500 MG TAB PO SCH ×2 (12:06→18:00)
[2020-07-06] MEDS ORDERED: Nicotine 7 MG PATCH TD SCH (13:00)
[2020-07-06] MEDS: Enoxaparin Sodium 40 MG/0.4 ML SYRINGE SC SCH (13:26)
[2020-07-06] MEDS: Nicotine 7 MG PATCH TD SCH (15:03)
[2020-07-06] MEDS: Ketorolac Tromethamine 30 MG/ML VIAL IVP PRN (18:24)
[2020-07-06] MEDS: ALPRAZolam 1 MG TAB PO PRN (21:06)
[2020-07-06] MEDS: Simvastatin 10 MG TAB PO SCH (21:07)
[2020-07-07] MEDS: Sodium Chloride 0.9% 1,000 ML IV SCH ×3 (01:35→18:39)
[2020-07-07] MEDS: Cefepime 1 GM in Sodium Chloride 0.9% 100 ML IVPB SCH ×2 (03:23→14:59)
[2020-07-07] MEDS: Ketorolac Tromethamine 30 MG/ML VIAL IVP PRN ×3 (03:33→23:57)
[2020-07-07] MEDS: Clindamycin/D5W 600 MG in Premix Bag 1 BAG IVPB SCH ×3 (07:00→19:00)
[2020-07-07] MEDS: metFORMIN 500 MG TAB PO SCH ×2 (07:51→17:15)
[2020-07-07] MEDS: Escitalopram Oxalate 20 mg Tablet PO SCH (07:52)
[2020-07-07] MEDS: Enoxaparin Sodium 40 MG/0.4 ML SYRINGE SC SCH (07:52)
[2020-07-07] MEDS: Morphine 4 MG/ML VIAL SLOW IVP PRN ×3 (07:53→21:52)
[2020-07-07] MEDS: Lisinopril 10 MG TAB PO SCH (09:41)
[2020-07-07] MEDS: Nicotine 7 MG PATCH TD SCH (14:58)
[2020-07-07] MEDS: Ondansetron PF 4 MG/2 ML Vial IVP PRN (17:55)
[2020-07-07] MEDS: Simvastatin 10 MG TAB PO SCH (21:51)
[2020-07-07] MEDS: Zolpidem Tartrate 5 MG TAB PO PRN (21:51)
[2020-07-08] MEDS: Cefepime 1 GM in Sodium Chloride 0.9% 100 ML IVPB SCH ×2 (02:29→16:16)
[2020-07-08] MEDS: Clindamycin/D5W 600 MG in Premix Bag 1 BAG IVPB SCH ×3 (02:29→16:16)
[2020-07-08] MEDS: Escitalopram Oxalate 20 mg Tablet PO SCH (08:39)
[2020-07-08] MEDS: Lisinopril 10 MG TAB PO SCH (08:39)
[2020-07-08] MEDS: metFORMIN 500 MG TAB PO SCH ×2 (08:39→16:16)
[2020-07-08] MEDS: Morphine 4 MG/ML VIAL SLOW IVP PRN ×2 (08:40→18:04)
[2020-07-08] MEDS: Enoxaparin Sodium 40 MG/0.4 ML SYRINGE SC SCH (08:40)
[2020-07-08] MEDS: Sodium Chloride 0.9% 1,000 ML IV SCH ×2 (08:42→22:45)
[2020-07-08] MEDS ORDERED: Lorazepam 2 MG/ML VIAL SLOW IVP PRN (09:55)
[2020-07-08] MEDS: ALPRAZolam 1 MG TAB PO PRN (12:16)
[2020-07-08] MEDS: Ketorolac Tromethamine 30 MG/ML VIAL IVP PRN ×2 (12:17→18:41)
[2020-07-08] MEDS ORDERED: EPINEPHrine 1 MG/ML AMP ONE (13:12)
[2020-07-08] MEDS ORDERED: Bupivacaine 0.25% HCL 30 ML VIAL ONE (13:12)
[2020-07-08] MEDS ORDERED: Midazolam HCl 2 mg/2 ml Vial ONE ×2 (13:26→13:28)
[2020-07-08] MEDS ORDERED: Fentanyl 100 MCG/2 ML VIAL ONE ×2 (13:28→14:30)
[2020-07-08] MEDS ORDERED: PROPOFOL 200 MG/20 ML VIAL ONE (13:33)
[2020-07-08] MEDS ORDERED: Ondansetron PF 4 MG/2 ML Vial ONE (13:33)
[2020-07-08] MEDS ORDERED: Metoclopramide HCl 10 MG/2 ML VIAL ONE (13:33)
[2020-07-08] MEDS ORDERED: Lidocaine 1% PF 5 ML VIAL ONE (13:33)
[2020-07-08] MEDS ORDERED: Promethazine HCl 25 MG/ML VIAL IM PRN (14:15)
[2020-07-08] MEDS ORDERED: Ondansetron HCl/PF 4 MG/2 ML Vial IVP PRN (14:15)
[2020-07-08] MEDS ORDERED: Promethazine HCl 25 MG/ML VIAL SLOW IVP PRN (14:15)
[2020-07-08] MEDS: Nicotine 7 MG PATCH TD SCH (16:16)
[2020-07-08 16:17] LABS: ANA Symphony (Qualitative) Negative (Negative); ANA Symphony (Quantitative) 0.2 Ratio (< 0.7 Negative); dsDNA IgG Antibody 0.5 IU/mL (<10 Negative)
[2020-07-08] MEDS: HYDROcodone/Acetaminophen 7.5/325 mg Tablet PO PRN ×2 (16:20→22:35)
[2020-07-08] MEDS: Simvastatin 10 MG TAB PO SCH (22:35)
[2020-07-08] MEDS: Zolpidem Tartrate 5 MG TAB PO PRN (22:36)
[2020-07-09] MEDS: Clindamycin/D5W 600 MG in Premix Bag 1 BAG IVPB SCH ×2 (00:39→08:22)
[2020-07-09] MEDS: Morphine 4 MG/ML VIAL SLOW IVP PRN ×2 (00:40→08:26)
[2020-07-09] MEDS: Cefepime 1 GM in Sodium Chloride 0.9% 100 ML IVPB SCH (03:35)
[2020-07-09] MEDS: Ketorolac Tromethamine 30 MG/ML VIAL IVP PRN (04:10)
[2020-07-09 06:18] LABS: #Basophils 0.1 thou/uL (0.0-0.2); #Eosinphils 0.1 thou/uL (0.0-0.7); #Lymphocytes 2.6 thou/uL (1.20-3.40); #Monocytes 0.4 thou/uL (0.11-0.59); #Neutrophils 7.7 thou/uL (1.40-6.50); %Basophils 0.8 % (0.0-1.0); %Eosinophils 1.1 % (0.0-10.0); %Lymphocytes 23.8 % (21.0-51.0); %Neutrophils 70.3 % (42.0-75.0); Hemoglobin 11.9 g/dL (12.0-16.0); Mean Corpuscular HGB CONC 32.6 g/dL (32.0-36.0); Mean Corpuscular Hemoglobin 30.6 pg (27.0-31.0); Mean Corpuscular Volume 94.1 fL (78.0-98.0); Mean Platelet Volume 7.8 fL (7.4-10.4); Platelet Count 314 thou/uL (130-400); RBC Distribution Width 13.4 % (11.5-14.5); Red Blood Cell (RBC) Count 3.87 mill/uL (4.20-5.40); White Blood Cell (WBC) Count 10.9 thou/uL (4.8-10.8)
[2020-07-09 06:39] LABS: Anion Gap 14 mmol/L (10-20); BUN (Urea Nitrogen) 5 mg/dL (7.0-18.7); Calc. Creatinine Clearance 187 mL/min (70-130); Calcium 7.8 mg/dL (7.8-10.44); Carbon Dioxide 23 mmol/L (22-29); Chloride 105 mmol/L (98-107); Glucose 177 mg/dL (70-105); Potassium 3.7 mmol/L (3.5-5.1); Sodium 138 mmol/L (136-145)
[2020-07-09] MEDS: Sodium Chloride 0.9% 1,000 ML IV SCH (08:22)
[2020-07-09] MEDS: metFORMIN 500 MG TAB PO SCH (08:23)
[2020-07-09] MEDS: ALPRAZolam 1 MG TAB PO PRN (08:24)
[2020-07-09] MEDS: Escitalopram Oxalate 20 mg Tablet PO SCH (08:24)
[2020-07-09] MEDS: HYDROcodone/Acetaminophen 7.5/325 mg Tablet PO PRN (08:24)
[2020-07-09] MEDS: Lisinopril 10 MG TAB PO SCH (08:24)
[2020-07-09] MEDS: Enoxaparin Sodium 40 MG/0.4 ML SYRINGE SC SCH (08:24)
[2020-07-09 08:27] VITALS: BP 141/90
[2020-07-09 08:36] VITALS: TEMP 98.1
[2020-07-12 15:14] LABS: Cytoplasmic (C-ANCA) <1:20 titer (Neg:<1:20); Myeloperoxidase AutoAbs <9.0 U/mL (0.0-9.0); Perinuclear (P-ANCA) <1:20 titer (Neg:<1:20); Proteinase-3 AutoAbs Less than 3.5 U/mL (0.0-3.5)
== END 2020-07-09 12:54 | disposition home or self-care (01) | DRG 862 ==
LOC: ERS 10:45 → ERHOLD 16:07 → T4-A 21:38
PROVIDERS: ADMIT Internal Medicine; ATTEND Family Medicine
PROC: 0H9 Skin and Breast, Drainage (ICD-10-PCS; principal; 2020-07-08)
PROC: 0HB5XZX Excision of Chest Skin, External Approach, Diagnostic (ICD-10-PCS; 2020-07-08)
DX: T81.44XA Sepsis following a procedure, initial encounter (principal); A41.9 Sepsis, unspecified organism; Z68.42 Body mass index [BMI] 45.0-49.9, adult; E87.1 Hypo-osmolality and hyponatremia; T81.40XA Infection following a procedure, unspecified, initial encounter; N61.1 Abscess of the breast and nipple; Z20.822 Contact with and (suspected) exposure to COVID-19; I10 Essential (primary) hypertension; E11.9 Type 2 diabetes mellitus without complications; F41.9 Anxiety disorder, unspecified; F31.9 Bipolar disorder, unspecified; F17.210 Nicotine dependence, cigarettes, uncomplicated; E78.5 Hyperlipidemia, unspecified; Z90.49 Acquired absence of other specified parts of digestive tract; Z88.5 Allergy status to narcotic agent; Z88.0 Allergy status to penicillin; Z79.84 Long term (current) use of oral hypoglycemic drugs; Z79.899 Other long term (current) drug therapy; E66.01 Morbid (severe) obesity due to excess calories; Y83.8 Other surgical procedures as the cause of abnormal reaction of the patient, or of later complication, without mention of misadventure at the time of the procedure
CPT/HCPCS: 36415; 36416; 80048; 80053; 83520; 83605; 84443; 85025; 85652; 86038; 86140; 86225; 86256; 87040; 87070; 87205; 87635; 88305; 96365; 96367; 96375; 96376; J0171; J0692; J1650; J1815; J1885; J2060; J2250; J2270; J2405; J2704; J2765; J3010; J3370; J3490; S0020; U0003; U0005

== ENCOUNTER 2020-08-31 14:29 | Emergency (ER) | payer OTHER, SELFPAY ==
[2020-08-31 16:23] LABS: #Basophils 0.1 thou/uL (0.0-0.2); #Eosinphils 0.1 thou/uL (0.0-0.7); #Monocytes 0.7 thou/uL (0.11-0.59); %Basophils 0.7 % (0.0-1.0); %Eosinophils 0.6 % (0.0-10.0); %Lymphocytes 21.2 % (21.0-51.0); %Monocytes 3.7 % (0.0-10.0); %Neutrophils 73.8 % (42.0-75.0); Hemoglobin 14.5 g/dL (12.0-16.0); Mean Corpuscular HGB CONC 32.6 g/dL (32.0-36.0); Mean Corpuscular Hemoglobin 31.3 pg (27.0-31.0); Mean Corpuscular Volume 95.9 fL (78.0-98.0); Mean Platelet Volume 7.5 fL (7.4-10.4); Platelet Count 469 thou/uL (130-400); RBC Distribution Width 13.2 % (11.5-14.5); Red Blood Cell (RBC) Count 4.63 mill/uL (4.20-5.40)
[2020-08-31 16:38] LABS: ALT (SGPT) 19 U/L (8-55); AST (SGOT) 23 U/L (5-34); Albumin 4.1 g/dL (3.5-5.0); Alkaline Phosphatase 97 U/L (40-110); Anion Gap 16 mmol/L (10-20); BUN (Urea Nitrogen) 7 mg/dL (7.0-18.7); Bilirubin, Total 0.4 mg/dL (0.2-1.2); Calc. Creatinine Clearance 0 mL/min (70-130); Calcium 9.5 mg/dL (7.8-10.44); Carbon Dioxide 23 mmol/L (22-29); Chloride 99 mmol/L (98-107); Globulin 4.1 g/dL (2.4-3.5); Glucose 221 mg/dL (70-105); Potassium 4.1 mmol/L (3.5-5.1); Protein, Total 8.2 g/dL (6.0-8.3); Sodium 134 mmol/L (136-145)
[2020-08-31] MEDS ORDERED: Clindamycin/D5W 600 mg/50 ml Premix Bag ONE (20:26)
[2020-08-31] MEDS ORDERED: Morphine 4 MG/ML VIAL ONE (20:26)
[2020-08-31] MEDS ORDERED: Ketorolac Tromethamine 30 MG/ML VIAL ONE ×2 (20:26→20:35)
[2020-08-31] MEDS ORDERED: Ondansetron PF 4 MG/2 ML Vial ONE (20:36)
[2020-08-31] MEDS ORDERED: HYDROcodone/Acetaminophen 5/325 mg Tablet ONE (21:45)
== END 2020-08-31 21:37 | disposition home or self-care (01) ==
LOC: ERS 14:29
DX: N61.1 Abscess of the breast and nipple (principal); E11.9 Type 2 diabetes mellitus without complications; I10 Essential (primary) hypertension; F17.210 Nicotine dependence, cigarettes, uncomplicated; Z79.84 Long term (current) use of oral hypoglycemic drugs; Z79.899 Other long term (current) drug therapy
CPT/HCPCS: 36415; 80053; 83605; 85025; 96365; 96375; J1885; J2270; J2405; J3490

== ENCOUNTER 2020-09-01 14:32 | Outpatient (CLI) | payer OTHER, SELFPAY ==
[2020-09-01 15:36] LABS: #Basophils 0.1 10x3/uL (0.0-0.2); #Eosinphils 0.1 10x3/uL (0.0-0.5); #Monocytes 0.4 10x3/uL (0.0-1.1); #Neutrophils 8.8 10x3/uL (1.5-8.4); %Basophils 0.4 % (0.0-2.0); %Eosinophils 0.8 % (0.0-6.0); %Lymphocytes 22.8 % (18.0-47.0); %Monocytes 3.6 % (0.0-10.0); Hemoglobin 13.6 g/dL (12.0-15.5); Mean Corpuscular HGB CONC 32.7 g/dL (32.0-36.0); Mean Corpuscular Hemoglobin 30.3 pg (27.0-33.0); Mean Corpuscular Volume 92.7 fl (81.6-98.3); Mean Platelet Volume 10.1 fl (7.4-10.4); Platelet Count 443 10x3/uL (150-450); Red Blood Cell (RBC) Count 4.49 10x6/uL (3.90-5.03); White Blood Cell (WBC) Count 12.2 10x3/uL (3.5-10.5)
[2020-09-01 15:59] LABS: ALT (SGPT) 67 U/L (8-55); AST (SGOT) 99 U/L (5-34); Alkaline Phosphatase 139 U/L (40-110); Anion Gap 17 mmol/L (10-20); BUN (Urea Nitrogen) 7 mg/dL (7.0-18.7); Bilirubin, Total 0.8 mg/dL (0.2-1.2); Calc. Creatinine Clearance 0 mL/min (70-130); Calcium 9.5 mg/dL (7.8-10.44); Carbon Dioxide 22 mmol/L (22-29); Chloride 100 mmol/L (98-107); Globulin 3.7 g/dL (2.4-3.5); Glucose 277 mg/dL (70-105); Potassium 4.2 mmol/L (3.5-5.1); Protein, Total 7.7 g/dL (6.0-8.3); Sodium 135 mmol/L (136-145)
[2020-09-02 08:16] LABS: SARS-CoV-2 NAA Rapid Test Not Detected (NotDetected)
== END 2020-09-01 14:33 | disposition home or self-care (01) ==
LOC: LABBT 14:32
PROVIDERS: ATTEND Surgery
DX: Z01.818 Encounter for other preprocedural examination (principal); N61.1 Abscess of the breast and nipple; Z20.822 Contact with and (suspected) exposure to COVID-19
CPT/HCPCS: 80053; 85025; U0002

== ENCOUNTER 2020-09-02 09:49 | Day surgery (SDC) | payer OTHER, SELFPAY ==
[2020-09-01 15:40] VITALS: BMI 43.2
[2020-09-02] MEDS ORDERED: Vancomycin 1 GM/200 ML BAG ONE (11:01)
[2020-09-02] MEDS ORDERED: Midazolam HCl 2 mg/2 ml Vial ONE (11:02)
[2020-09-02] MEDS ORDERED: Fentanyl 100 MCG/2 ML VIAL ONE ×3 (11:34→12:55)
[2020-09-02] MEDS ORDERED: Famotidine/PF 20 mg/2ml Vial ONE (11:34)
[2020-09-02] MEDS ORDERED: Ketorolac Tromethamine 30 MG/ML VIAL ONE (11:54)
[2020-09-02] MEDS ORDERED: Succinylcholine 200 MG/10 ml SYRINGE FS ONE (11:54)
[2020-09-02] MEDS ORDERED: PROPOFOL 200 MG/20 ML VIAL ONE (11:54)
[2020-09-02] MEDS ORDERED: Lidocaine 1% PF 5 ML VIAL ONE (11:54)
[2020-09-02] MEDS ORDERED: Lidocaine 1% w/Epinephrine 1:100K 20 ML VIAL ONE (12:09)
[2020-09-02] MEDS ORDERED: Bupivacaine 0.25% HCL 30 ML VIAL ONE (12:09)
[2020-09-07 10:42] LABS: Fungus Stain Final report (.)
== END 2020-09-02 14:35 | disposition home or self-care (01) ==
LOC: SDC 09:49
PROVIDERS: ATTEND Surgery
PROC: 0J960ZZ Drainage of Chest Subcutaneous Tissue and Fascia, Open Approach (ICD-10-PCS; principal; 2020-09-02)
DX: N61.1 Abscess of the breast and nipple (principal); E11.9 Type 2 diabetes mellitus without complications; I10 Essential (primary) hypertension; F17.210 Nicotine dependence, cigarettes, uncomplicated; Z79.84 Long term (current) use of oral hypoglycemic drugs; Z79.899 Other long term (current) drug therapy; Z88.0 Allergy status to penicillin; Z88.5 Allergy status to narcotic agent
CPT/HCPCS: 36416; 87070; 87102; 87205; 87206; 88305; 88312; J1885; J2250; J2704; J3010; J3370; S0020; S0028

== ENCOUNTER 2020-09-05 12:49 | Inpatient (IN) | payer OTHER, SELFPAY ==
[~2020-09-05 12:49] MED LIST: Iopamidol-370 76% 500 ML 1 ML ONE
[2020-09-05 13:26] LABS: #Basophils 0.1 thou/uL (0.0-0.2); #Eosinphils 0.2 thou/uL (0.0-0.7); #Lymphocytes 3.5 thou/uL (1.20-3.40); #Monocytes 0.6 thou/uL (0.11-0.59); #Neutrophils 9.7 thou/uL (1.40-6.50); %Basophils 0.6 % (0.0-1.0); %Eosinophils 1.6 % (0.0-10.0); %Lymphocytes 24.7 % (21.0-51.0); %Monocytes 4.1 % (0.0-10.0); Hemoglobin 13.2 g/dL (12.0-16.0); Mean Corpuscular HGB CONC 32.6 g/dL (32.0-36.0); Mean Corpuscular Hemoglobin 31.6 pg (27.0-31.0); Mean Corpuscular Volume 96.9 fL (78.0-98.0); Platelet Count 381 thou/uL (130-400); Red Blood Cell (RBC) Count 4.19 mill/uL (4.20-5.40); White Blood Cell (WBC) Count 14.1 thou/uL (4.8-10.8)
[2020-09-05 13:49] LABS: ALT (SGPT) 69 U/L (8-55); AST (SGOT) 30 U/L (5-34); Albumin 3.6 g/dL (3.5-5.0); Alkaline Phosphatase 142 U/L (40-110); Anion Gap 14 mmol/L (10-20); BUN (Urea Nitrogen) 5 mg/dL (7.0-18.7); Bilirubin, Total 0.4 mg/dL (0.2-1.2); Calc. Creatinine Clearance 0 mL/min (70-130); Calcium 8.6 mg/dL (7.8-10.44); Carbon Dioxide 23 mmol/L (22-29); Chloride 102 mmol/L (98-107); Globulin 3.5 g/dL (2.4-3.5); Glucose 194 mg/dL (70-105); Potassium 3.9 mmol/L (3.5-5.1); Protein, Total 7.1 g/dL (6.0-8.3); Sodium 135 mmol/L (136-145)
[2020-09-05 16:36] LABS: Lactic Acid 1.7 mmol/L (0.5-2.2)
[2020-09-05] MEDS ORDERED: Cefepime 2 GM VIAL ONE (17:26)
[2020-09-05] MEDS ORDERED: Cefepime 2 GM in Sodium Chloride 0.9% 100 ML IVPB SCH (17:30)
[2020-09-05] MEDS ORDERED: Ondansetron PF 4 MG/2 ML Vial ONE (18:21)
[2020-09-05] MEDS ORDERED: Morphine 4 MG/ML VIAL ONE (18:21)
[2020-09-05] MEDS ORDERED: Vancomycin 1 GM/200 ML BAG ONE (20:13)
[2020-09-05] MEDS ORDERED: Acetaminophen 325 MG TAB PO PRN (20:42)
[2020-09-05] MEDS ORDERED: metroNIDAZOLE 500 MG in Premix Bag 1 BAG IVPB SCH ×2 (21:15→22:00)
[2020-09-05] MEDS ORDERED: Sodium Chloride 0.9% 1,000 ML IV SCH (21:15)
[2020-09-05] MEDS ORDERED: Vancomycin HCl 500 MG in Sodium Chloride 0.9% 100 ML IVPB SCH (21:30)
[2020-09-05] MEDS ORDERED: HumaLOG 300 UNITS/3 ML VIAL SC PRN (23:33)
[2020-09-05] MEDS ORDERED: Dextrose 5% in Water 1,000 ML IV PRN (23:33)
[2020-09-05] MEDS ORDERED: Dextrose 50% Abboject 50 ML SYRINGE SLOW IVP PRN (23:33)
[2020-09-05 23:50] VITALS: BMI 44.6
[2020-09-06] MEDS ORDERED: Morphine 4 MG/ML VIAL ONE ×3 (00:12→12:05)
[2020-09-06] MEDS ORDERED: Acetaminophen 325 MG TAB ONE (00:15)
[2020-09-06] MEDS: Morphine 4 MG/ML VIAL SLOW IVP PRN ×5 (00:19→22:39)
[2020-09-06] MEDS ORDERED: metroNIDAZOLE 500 MG/100 ML BAG ONE ×2 (00:46→04:50)
[2020-09-06] MEDS ORDERED: Ondansetron PF 4 MG/2 ML Vial ONE (04:57)
[2020-09-06] MEDS: Ondansetron PF 4 MG/2 ML Vial IVP PRN ×2 (05:01→20:25)
[2020-09-06] MEDS: metroNIDAZOLE 500 MG in Premix Bag 1 BAG IVPB SCH ×3 (05:03→23:01)
[2020-09-06 05:12] LABS: #Basophils 0.1 thou/uL (0.0-0.2); #Eosinphils 0.2 thou/uL (0.0-0.7); #Lymphocytes 2.5 thou/uL (1.20-3.40); #Monocytes 0.6 thou/uL (0.11-0.59); #Neutrophils 9.2 thou/uL (1.40-6.50); %Basophils 0.5 % (0.0-1.0); %Eosinophils 1.3 % (0.0-10.0); %Lymphocytes 19.9 % (21.0-51.0); %Neutrophils 73.4 % (42.0-75.0); Hemoglobin 12.7 g/dL (12.0-16.0); Mean Corpuscular HGB CONC 33.3 g/dL (32.0-36.0); Mean Corpuscular Hemoglobin 32.2 pg (27.0-31.0); Mean Corpuscular Volume 96.6 fL (78.0-98.0); Mean Platelet Volume 8.1 fL (7.4-10.4); Platelet Count 382 thou/uL (130-400); Red Blood Cell (RBC) Count 3.94 mill/uL (4.20-5.40); White Blood Cell (WBC) Count 12.6 thou/uL (4.8-10.8)
[2020-09-06 05:34] LABS: Anion Gap 12 mmol/L (10-20); BUN (Urea Nitrogen) 4 mg/dL (7.0-18.7); Calc. Creatinine Clearance 181 mL/min (70-130); Calcium 8.6 mg/dL (7.8-10.44); Carbon Dioxide 26 mmol/L (22-29); Chloride 103 mmol/L (98-107); Glucose 208 mg/dL (70-105); Potassium 3.6 mmol/L (3.5-5.1); Sodium 137 mmol/L (136-145)
[2020-09-06 05:38] LABS: ALT (SGPT) 109 U/L (8-55); AST (SGOT) 158 U/L (5-34); Albumin 3.5 g/dL (3.5-5.0); Alkaline Phosphatase 215 U/L (40-110); Bilirubin, Direct 0.3 mg/dL (0.1-0.3); Bilirubin, Total 0.6 mg/dL (0.2-1.2); Protein, Total 6.9 g/dL (6.0-8.3)
[2020-09-06 06:06] LABS: HBCM Index 0.06 S/CO (0-0.79); HBSAg Index 0.23 S/CO (0-0.99); Hep A IgM AB Non-Reactive (NonReactive); Hep B Surf Ag Non-Reactive S/CO (NonReactive); Hep C IgG Ab Non-Reactive (NonReactive); Hep C Index 0.05 S/CO (0-0.79); Hepatitis B Core IgM Abs Non-Reactive (NonReactive)
[2020-09-06] MEDS ORDERED: Vancomycin HCl 1.5 GM in Sodium Chloride 0.9% 500 ML IVPB SCH (08:00)
[2020-09-06] MEDS ORDERED: Vancomycin HCl 1.5 GM in Sodium Chloride 0.9% 250 ML 300 ML IVPB SCH (08:00)
[2020-09-06] MEDS ORDERED: Cefepime 2 GM VIAL ONE (08:27)
[2020-09-06] MEDS ORDERED: HYDROcodone/Acetaminophen 5/325 mg Tablet ONE (09:36)
[2020-09-06] MEDS: HYDROcodone/Acetaminophen 5/325 mg Tablet PO PRN ×3 (09:43→20:33)
[2020-09-06] MEDS ORDERED: HumaLOG 300 UNITS/3 ML VIAL ONE (12:05)
[2020-09-06] MEDS: Cefepime 2 GM in Sodium Chloride 0.9% 100 ML IVPB SCH ×2 (12:17→20:51)
[2020-09-06] MEDS: HumaLOG 300 UNITS/3 ML VIAL SC PRN ×2 (12:18→17:10)
[2020-09-06] MEDS ORDERED: Lantus 1000 UNITS/10 ML VIAL SC SCH (13:00)
[2020-09-06] MEDS: Lisinopril 10 MG TAB PO SCH (20:33)
[2020-09-06] MEDS: ALPRAZolam 1 MG TAB PO PRN (21:34)
[2020-09-06] MEDS: Simvastatin 10 MG TAB PO SCH (22:24)
[2020-09-07] MEDS: HYDROcodone/Acetaminophen 5/325 mg Tablet PO PRN ×4 (02:19→20:24)
[2020-09-07] MEDS: Morphine 4 MG/ML VIAL SLOW IVP PRN ×4 (04:48→18:03)
[2020-09-07] MEDS: metroNIDAZOLE 500 MG in Premix Bag 1 BAG IVPB SCH ×3 (06:23→21:39)
[2020-09-07 06:42] LABS: #Basophils 0.1 thou/uL (0.0-0.2); #Eosinphils 0.1 thou/uL (0.0-0.7); #Lymphocytes 2.8 thou/uL (1.20-3.40); #Monocytes 0.7 thou/uL (0.11-0.59); #Neutrophils 7.1 thou/uL (1.40-6.50); %Basophils 0.6 % (0.0-1.0); %Eosinophils 1.2 % (0.0-10.0); %Monocytes 6.2 % (0.0-10.0); %Neutrophils 65.9 % (42.0-75.0); Hemoglobin 12.9 g/dL (12.0-16.0); Mean Corpuscular HGB CONC 31.7 g/dL (32.0-36.0); Mean Corpuscular Hemoglobin 30.7 pg (27.0-31.0); Mean Platelet Volume 8.1 fL (7.4-10.4); Platelet Count 382 thou/uL (130-400); RBC Distribution Width 13.2 % (11.5-14.5); White Blood Cell (WBC) Count 10.7 thou/uL (4.8-10.8)
[2020-09-07 06:56] LABS: ALT (SGPT) 230 U/L (8-55); AST (SGOT) 352 U/L (5-34); Albumin 3.5 g/dL (3.5-5.0); Alkaline Phosphatase 225 U/L (40-110); Anion Gap 10 mmol/L (10-20); BUN (Urea Nitrogen) Less than 4 mg/dL (7.0-18.7); Bilirubin, Total 0.8 mg/dL (0.2-1.2); Calc. Creatinine Clearance 184 mL/min (70-130); Calcium 8.7 mg/dL (7.8-10.44); Carbon Dioxide 27 mmol/L (22-29); Chloride 102 mmol/L (98-107); Globulin 3.5 g/dL (2.4-3.5); Glucose 194 mg/dL (70-105); Lipase 9 U/L (8-78); Potassium 3.4 mmol/L (3.5-5.1); Sodium 136 mmol/L (136-145)
[2020-09-07] MEDS: Escitalopram Oxalate 10 mg Tablet PO SCH (08:23)
[2020-09-07] MEDS: Lantus 1000 UNITS/10 ML VIAL SC SCH (08:24)
[2020-09-07] MEDS ORDERED: Losartan 25 MG TAB PO SCH (09:00)
[2020-09-07] MEDS ORDERED: Lisinopril 2.5 MG TAB PO SCH (09:00)
[2020-09-07] MEDS ORDERED: hydrALAZINE 20 MG/ML VIAL SLOW IVP PRN (10:11)
[2020-09-07] MEDS ORDERED: hydrALAZINE 25 MG TAB PO PRN (10:11)
[2020-09-07] MEDS: Cefepime 2 GM in Sodium Chloride 0.9% 100 ML IVPB SCH ×2 (10:39→20:16)
[2020-09-07] MEDS: HumaLOG 300 UNITS/3 ML VIAL SC PRN ×2 (12:39→16:38)
[2020-09-07] MEDS: Fioricet 325/50/40 mg Tablet PO PRN (13:28)
[2020-09-07] MEDS: Ondansetron ODT 4 MG TAB PO PRN ×2 (17:37→22:54)
[2020-09-07] MEDS: Lisinopril 10 MG TAB PO SCH (20:17)
[2020-09-07] MEDS: Simvastatin 10 MG TAB PO SCH (20:18)
[2020-09-07] MEDS: ALPRAZolam 1 MG TAB PO PRN (20:18)
[2020-09-08] MEDS: Morphine 4 MG/ML VIAL SLOW IVP PRN ×3 (01:01→13:26)
[2020-09-08] MEDS: metroNIDAZOLE 500 MG in Premix Bag 1 BAG IVPB SCH ×3 (05:59→15:12)
[2020-09-08] MEDS: HYDROcodone/Acetaminophen 5/325 mg Tablet PO PRN ×2 (06:00→11:38)
[2020-09-08] MEDS: HumaLOG 300 UNITS/3 ML VIAL SC PRN ×3 (06:03→16:15)
[2020-09-08] MEDS ORDERED: Polyethylene Glycol 3350 17 GM Packet PO SCH (09:00)
[2020-09-08] MEDS ORDERED: Amlodipine 5 MG TAB PO SCH (09:00)
[2020-09-08] MEDS: Escitalopram Oxalate 10 mg Tablet PO SCH (09:43)
[2020-09-08] MEDS: Lantus 1000 UNITS/10 ML VIAL SC SCH (09:44)
[2020-09-08] MEDS: Fioricet 325/50/40 mg Tablet PO PRN (09:45)
[2020-09-08] MEDS: Cefepime 2 GM in Sodium Chloride 0.9% 100 ML IVPB SCH (09:45)
[2020-09-08 13:53] LABS: ANA Symphony (Qualitative) Negative (Negative); ANA Symphony (Quantitative) 0.3 Ratio (< 0.7 Negative); EliA Vaculitis New Method **** NEW METHOD ****; Mitochondrial Ab 2.8 U/mL (<4 Negative); dsDNA IgG Antibody 0.7 IU/mL (<10 Negative)
[2020-09-08] MEDS ORDERED: HYDROcodone/Acetaminophen 10/325 mg Tablet PO PRN (14:39)
[2020-09-08] MEDS ORDERED: Ketorolac Tromethamine 30 MG/ML VIAL IM PRN (16:28)
[2020-09-08] MEDS ORDERED: metFORMIN 500 MG TAB PO SCH (17:00)
[2020-09-08 18:10] VITALS: BP 146/86; TEMP 98.3
== END 2020-09-08 18:06 | disposition home or self-care (01) | DRG 872 ==
LOC: ERS 12:49 → ERHOLD 18:24 → T4-A 09-06 13:01
PROVIDERS: ADMIT Internal Medicine; ATTEND Internal Medicine
DX: A41.9 Sepsis, unspecified organism (principal); Z68.41 Body mass index [BMI] 40.0-44.9, adult; N61.1 Abscess of the breast and nipple; R74.01 Elevation of levels of liver transaminase levels; E66.01 Morbid (severe) obesity due to excess calories; R10.9 Unspecified abdominal pain; K76.0 Fatty (change of) liver, not elsewhere classified; N61.22 Granulomatous mastitis, left breast; R79.89 Other specified abnormal findings of blood chemistry; E11.65 Type 2 diabetes mellitus with hyperglycemia; I10 Essential (primary) hypertension; G89.29 Other chronic pain; F41.9 Anxiety disorder, unspecified; F31.9 Bipolar disorder, unspecified; F17.210 Nicotine dependence, cigarettes, uncomplicated; Z88.5 Allergy status to narcotic agent; Z88.0 Allergy status to penicillin; Z88.8 Allergy status to other drugs, medicaments and biological substances; Z79.84 Long term (current) use of oral hypoglycemic drugs; Z79.899 Other long term (current) drug therapy; Z90.49 Acquired absence of other specified parts of digestive tract
CPT/HCPCS: 36415; 36416; 71260; 74181; 76705; 80048; 80053; 80074; 80076; 82103; 82390; 82728; 83516; 83540; 83550; 83605; 83690; 85025; 86038; 86225; 93005; 94760; 96365; 96367; 96375; J0692; J1815; J2270; J2405; J3370; J3490; J7050; Q0162; Q9967

== ENCOUNTER 2020-09-09 11:27 | Inpatient (IN) | payer OTHER, SELFPAY ==
[2020-09-09 12:56] LABS: #Basophils 0.1 thou/uL (0.0-0.2); #Eosinphils 0.2 thou/uL (0.0-0.7); #Lymphocytes 2.9 thou/uL (1.20-3.40); #Monocytes 0.5 thou/uL (0.11-0.59); #Neutrophils 10.2 thou/uL (1.40-6.50); %Basophils 0.4 % (0.0-1.0); %Eosinophils 1.3 % (0.0-10.0); %Lymphocytes 20.9 % (21.0-51.0); %Monocytes 3.4 % (0.0-10.0); Hemoglobin 13.8 g/dL (12.0-16.0); Mean Corpuscular HGB CONC 33.3 g/dL (32.0-36.0); Mean Corpuscular Hemoglobin 32.4 pg (27.0-31.0); Mean Corpuscular Volume 97.3 fL (78.0-98.0); Mean Platelet Volume 7.9 fL (7.4-10.4); Platelet Count 396 thou/uL (130-400); RBC Distribution Width 13.4 % (11.5-14.5); Red Blood Cell (RBC) Count 4.26 mill/uL (4.20-5.40); White Blood Cell (WBC) Count 13.8 thou/uL (4.8-10.8)
[2020-09-09 13:22] LABS: ALT (SGPT) 474 U/L (8-55); AST (SGOT) 234 U/L (5-34); Albumin 3.6 g/dL (3.5-5.0); Alkaline Phosphatase 292 U/L (40-110); Anion Gap 16 mmol/L (10-20); BUN (Urea Nitrogen) Less than 4 mg/dL (7.0-18.7); Bilirubin, Total 0.8 mg/dL (0.2-1.2); Calc. Creatinine Clearance 0 mL/min (70-130); Calcium 8.8 mg/dL (7.8-10.44); Carbon Dioxide 21 mmol/L (22-29); Chloride 100 mmol/L (98-107); Globulin 3.8 g/dL (2.4-3.5); Glucose 312 mg/dL (70-105); Potassium 3.6 mmol/L (3.5-5.1); Protein, Total 7.4 g/dL (6.0-8.3); Sodium 133 mmol/L (136-145)
[2020-09-09] MEDS ORDERED: Ketorolac Tromethamine 30 MG/ML VIAL ONE (13:27)
[2020-09-09] MEDS ORDERED: Morphine 4 MG/ML VIAL ONE ×2 (13:27→14:47)
[2020-09-09] MEDS ORDERED: Cefepime 2 GM VIAL ONE (13:27)
[2020-09-09] MEDS ORDERED: Vancomycin 1 GM/200 ML BAG ONE (14:47)
[2020-09-09] MEDS ORDERED: Lidocaine 1% w/Epinephrine 1:100K 20 ML VIAL ONE (14:47)
[2020-09-09] MEDS ORDERED: Morphine 2 MG/ML VIAL SLOW IVP PRN (16:37)
[2020-09-09 17:12] VITALS: BMI 43.4
[2020-09-09] MEDS ORDERED: Dextrose 5% in Water 1,000 ML IV PRN (17:15)
[2020-09-09] MEDS ORDERED: Promethazine 25 MG TAB PO PRN (17:15)
[2020-09-09] MEDS ORDERED: Acetaminophen 325 MG TAB PO PRN (17:15)
[2020-09-09] MEDS ORDERED: Promethazine HCl 25 MG SUPP PR PRN (17:15)
[2020-09-09] MEDS ORDERED: hydrALAZINE 20 MG/ML VIAL SLOW IVP PRN (17:15)
[2020-09-09] MEDS ORDERED: HYDROcodone/Acetaminophen 10/325 mg Tablet PO PRN (17:15)
[2020-09-09] MEDS ORDERED: HYDROcodone/Acetaminophen 5/325 mg Tablet PO PRN (17:15)
[2020-09-09] MEDS ORDERED: Dextrose 50% Abboject 50 ML SYRINGE SLOW IVP PRN (17:15)
[2020-09-09] MEDS ORDERED: Ondansetron ODT 4 MG TAB PO PRN (17:15)
[2020-09-09] MEDS: Sodium Chloride 0.9% 1,000 ML IV SCH (17:59)
[2020-09-09] MEDS: CEFEPIME HCL IN DEXTROSE 5 % 1 GM in Premix Bag 1 BAG IVPB SCH (18:46)
[2020-09-09] MEDS: Morphine 4 MG/ML VIAL SLOW IVP PRN (19:27)
[2020-09-09] MEDS: Ondansetron PF 4 MG/2 ML Vial IVP PRN (19:32)
[2020-09-09] MEDS ORDERED: Vancomycin 1 GM in Premix Bag 1 BAG IVPB SCH (21:00)
[2020-09-10] MEDS: Ondansetron PF 4 MG/2 ML Vial IVP PRN (00:03)
[2020-09-10] MEDS: Morphine 4 MG/ML VIAL SLOW IVP PRN ×6 (00:03→21:23)
[2020-09-10] MEDS: ALPRAZolam 1 MG TAB PO PRN ×2 (01:16→20:15)
[2020-09-10] MEDS: Sodium Chloride 0.9% 1,000 ML IV SCH (01:28)
[2020-09-10] MEDS: Vancomycin HCl 1.25 GM in Sodium Chloride 0.9% 250 ML 250 ML IVPB SCH ×2 (02:25→15:02)
[2020-09-10] MEDS: HumaLOG 300 UNITS/3 ML VIAL SC PRN ×4 (05:31→20:17)
[2020-09-10] MEDS: CEFEPIME HCL IN DEXTROSE 5 % 1 GM in Premix Bag 1 BAG IVPB SCH ×2 (05:35→18:33)
[2020-09-10 06:12] LABS: #Eosinphils 0.3 thou/uL (0.0-0.7); #Lymphocytes 3.7 thou/uL (1.20-3.40); #Monocytes 0.7 thou/uL (0.11-0.59); #Neutrophils 6.3 thou/uL (1.40-6.50); %Basophils 0.3 % (0.0-1.0); %Eosinophils 2.3 % (0.0-10.0); %Lymphocytes 33.5 % (21.0-51.0); %Monocytes 6.1 % (0.0-10.0); %Neutrophils 57.9 % (42.0-75.0); Hemoglobin 12.6 g/dL (12.0-16.0); Mean Corpuscular HGB CONC 33.3 g/dL (32.0-36.0); Mean Corpuscular Hemoglobin 32.3 pg (27.0-31.0); Mean Corpuscular Volume 96.9 fL (78.0-98.0); Platelet Count 356 thou/uL (130-400); RBC Distribution Width 13.5 % (11.5-14.5); Red Blood Cell (RBC) Count 3.91 mill/uL (4.20-5.40); White Blood Cell (WBC) Count 10.9 thou/uL (4.8-10.8)
[2020-09-10 07:15] LABS: Anion Gap 12 mmol/L (10-20); BUN (Urea Nitrogen) Less than 4 mg/dL (7.0-18.7); Calc. Creatinine Clearance 188 mL/min (70-130); Calcium 8.6 mg/dL (7.8-10.44); Carbon Dioxide 24 mmol/L (22-29); Chloride 104 mmol/L (98-107); Glucose 275 mg/dL (70-105); Potassium 3.2 mmol/L (3.5-5.1); Sodium 137 mmol/L (136-145)
[2020-09-10] MEDS: Escitalopram Oxalate 20 mg Tablet PO SCH (08:10)
[2020-09-10] MEDS: Amlodipine 5 MG TAB PO SCH (08:11)
[2020-09-10] MEDS ORDERED: Cyclobenzaprine 10 MG TAB PO PRN (08:11)
[2020-09-10] MEDS: Enoxaparin Sodium 40 MG/0.4 ML SYRINGE SC SCH (08:11)
[2020-09-10] MEDS ORDERED: Lantus 1000 UNITS/10 ML VIAL SC SCH (08:13)
[2020-09-10 08:24] LABS: SARS-CoV-2 NAA Rapid Test Not Detected (NotDetected)
[2020-09-10] MEDS: Lactinex Tablet PO SCH ×2 (08:32→20:15)
[2020-09-10] MEDS ORDERED: Amlodipine 5 MG TAB PO SCH (09:00)
[2020-09-10] MEDS: HYDROcodone/Acetaminophen 10/325 mg Tablet PO PRN ×3 (10:49→18:36)
[2020-09-10] MEDS: metFORMIN 500 MG TAB PO SCH (16:54)
[2020-09-11] MEDS: Morphine 4 MG/ML VIAL SLOW IVP PRN ×5 (01:20→21:07)
[2020-09-11] MEDS: Vancomycin HCl 1.5 GM in Sodium Chloride 0.9% 250 ML 300 ML IVPB SCH ×3 (02:04→18:25)
[2020-09-11] MEDS: CEFEPIME HCL IN DEXTROSE 5 % 1 GM in Premix Bag 1 BAG IVPB SCH ×2 (04:56→16:58)
[2020-09-11] MEDS: HumaLOG 300 UNITS/3 ML VIAL SC PRN ×3 (06:09→20:10)
[2020-09-11] MEDS: Escitalopram Oxalate 20 mg Tablet PO SCH (08:11)
[2020-09-11] MEDS: metFORMIN 500 MG TAB PO SCH ×2 (08:11→16:28)
[2020-09-11] MEDS: Amlodipine 5 MG TAB PO SCH (08:11)
[2020-09-11] MEDS: HYDROcodone/Acetaminophen 10/325 mg Tablet PO PRN ×3 (08:11→18:26)
[2020-09-11] MEDS: Lactinex Tablet PO SCH ×2 (08:11→21:19)
[2020-09-11] MEDS: Enoxaparin Sodium 40 MG/0.4 ML SYRINGE SC SCH (08:12)
[2020-09-11] MEDS: diphenhydrAMINE 25 MG CAP PO PRN ×2 (16:28→22:34)
[2020-09-11] MEDS: Ondansetron PF 4 MG/2 ML Vial IVP PRN (16:56)
[2020-09-12] MEDS: HYDROcodone/Acetaminophen 10/325 mg Tablet PO PRN (01:43)
[2020-09-12] MEDS: CEFEPIME HCL IN DEXTROSE 5 % 1 GM in Premix Bag 1 BAG IVPB SCH (05:58)
[2020-09-12] MEDS: Morphine 4 MG/ML VIAL SLOW IVP PRN ×2 (06:51→11:56)
[2020-09-12] MEDS: Lactinex Tablet PO SCH (08:57)
[2020-09-12] MEDS: Escitalopram Oxalate 20 mg Tablet PO SCH (08:58)
[2020-09-12] MEDS: metFORMIN 500 MG TAB PO SCH (08:58)
[2020-09-12] MEDS: Amlodipine 5 MG TAB PO SCH (08:59)
[2020-09-12] MEDS: Enoxaparin Sodium 40 MG/0.4 ML SYRINGE SC SCH (08:59)
[2020-09-12] MEDS ORDERED: Vancomycin HCl 1.75 GM in Sodium Chloride 0.9% 500 ML IVPB SCH (09:00)
[2020-09-12 15:19] VITALS: BP 138/90; TEMP 98.1
== END 2020-09-12 14:59 | disposition home or self-care (01) | DRG 854 ==
LOC: ERS 11:27 → INTOOBSV 15:28 → ERHOLD 15:28 → T4-B 16:36 → OBSVTOIN 09-10 19:21
PROVIDERS: ADMIT Internal Medicine; ATTEND Internal Medicine
PROC: 0H9U0ZZ Drainage of Left Breast, Open Approach (ICD-10-PCS; principal; 2020-09-10)
DX: A41.9 Sepsis, unspecified organism (principal); Z68.41 Body mass index [BMI] 40.0-44.9, adult; N61.1 Abscess of the breast and nipple; N61.22 Granulomatous mastitis, left breast; E11.9 Type 2 diabetes mellitus without complications; I10 Essential (primary) hypertension; G89.29 Other chronic pain; M54.9 Dorsalgia, unspecified; F31.9 Bipolar disorder, unspecified; E66.01 Morbid (severe) obesity due to excess calories; R79.89 Other specified abnormal findings of blood chemistry; F17.210 Nicotine dependence, cigarettes, uncomplicated; Z20.822 Contact with and (suspected) exposure to COVID-19; Z90.49 Acquired absence of other specified parts of digestive tract; Z98.890 Other specified postprocedural states; Z79.84 Long term (current) use of oral hypoglycemic drugs; Z79.899 Other long term (current) drug therapy; Z88.0 Allergy status to penicillin; Z88.5 Allergy status to narcotic agent; Z88.8 Allergy status to other drugs, medicaments and biological substances
CPT/HCPCS: 36415; 36416; 80048; 80053; 80202; 83605; 85025; 87040; 87070; 87086; 87205; 93005; 96365; 96366; 96367; 96372; 96375; 96376; G0378; J0692; J1650; J1815; J1885; J2270; J2405; J3370; J7030; J7050; Q0163; U0002; U0003; U0005

== ENCOUNTER 2020-10-11 11:39 | Inpatient (IN) | payer SELFPAY ==
[2020-10-11 12:14] LABS: #Eosinphils 0.3 thou/uL (0.0-0.7); #Lymphocytes 3.6 thou/uL (1.20-3.40); #Monocytes 0.3 thou/uL (0.11-0.59); #Neutrophils 11.9 thou/uL (1.40-6.50); %Basophils 0.2 % (0.0-1.0); %Eosinophils 1.7 % (0.0-10.0); %Lymphocytes 22.5 % (21.0-51.0); %Monocytes 1.6 % (0.0-10.0); %Neutrophils 74.1 % (42.0-75.0); Hemoglobin 12.6 g/dL (12.0-16.0); Mean Corpuscular HGB CONC 33.4 g/dL (32.0-36.0); Mean Corpuscular Hemoglobin 31.6 pg (27.0-31.0); Mean Corpuscular Volume 94.6 fL (78.0-98.0); Platelet Count 377 thou/uL (130-400); RBC Distribution Width 12.7 % (11.5-14.5); Red Blood Cell (RBC) Count 3.98 mill/uL (4.20-5.40)
[2020-10-11 12:41] LABS: ALT (SGPT) 27 U/L (8-55); AST (SGOT) 23 U/L (5-34); Albumin 3.8 g/dL (3.5-5.0); Alkaline Phosphatase 106 U/L (40-110); Anion Gap 15 mmol/L (10-20); BUN (Urea Nitrogen) 8 mg/dL (7.0-18.7); Bilirubin, Total 0.4 mg/dL (0.2-1.2); Calc. Creatinine Clearance 0 mL/min (70-130); Calcium 9.3 mg/dL (7.8-10.44); Carbon Dioxide 23 mmol/L (22-29); Chloride 99 mmol/L (98-107); Globulin 3.3 g/dL (2.4-3.5); Glucose 301 mg/dL (70-105); Potassium 4.3 mmol/L (3.5-5.1); Protein, Total 7.1 g/dL (6.0-8.3); Sodium 133 mmol/L (136-145)
[2020-10-11] MEDS ORDERED: Morphine 4 MG/ML VIAL ONE ×2 (13:23→15:48)
[2020-10-11] MEDS ORDERED: Ketorolac Tromethamine 30 MG/ML VIAL ONE (13:23)
[2020-10-11] MEDS ORDERED: cefTRIAXone\\ROCEPHIN 1 GM VIAL ONE (13:23)
[2020-10-11 13:51] LABS: Bacteria/HPF None Seen HPF (None Seen); Bilirubin Negative (Negative); Blood, Urine Negative (Negative); Clarity Clear (Clear); Glucose, Urine (Dipstick) Greater than 1000 mg/dL (Negative); Ketone, Urine Negative (Negative); Leukocyte 25 Leu/uL (Negative); Nitrite Negative (Negative); Protein, Urine (Dipstick) 30 mg/dL (Neg-Trace); RBC/HPF 0-3 HPF (0-3); Specific Gravity, Urine 1.024 (1.002-1.036); Squamous Epithelial 0-3 HPF (0-3); Urobilinogen Normal mg/dL (Less than 2); WBC/HPF 0-3 HPF (0-3); pH, Urine 6.5 (5.0-9.0)
[2020-10-11 15:18] LABS: Lactic Acid 2.6 mmol/L (0.5-2.2)
[2020-10-11] MEDS ORDERED: Vancomycin 1 GM/200 ML BAG ONE (15:44)
[2020-10-11] MEDS ORDERED: Morphine 2 MG/ML VIAL SLOW IVP PRN (16:39)
[2020-10-11] MEDS ORDERED: Dextrose 5% in Water 1,000 ML IV PRN (16:40)
[2020-10-11] MEDS ORDERED: Dextrose 50% Abboject 50 ML SYRINGE SLOW IVP PRN (16:40)
[2020-10-11] MEDS ORDERED: Vancomycin HCl 750 MG in Sodium Chloride 0.9% 250 ML 250 ML IVPB SCH (17:15)
[2020-10-11 18:31] VITALS: BMI 43.7
[2020-10-11 19:36] LABS: SARS-CoV-2 NAA Rapid Test Not Detected (NotDetected)
[2020-10-11] MEDS: Morphine 4 MG/ML VIAL SLOW IVP PRN (20:49)
[2020-10-12] MEDS: Morphine 4 MG/ML VIAL SLOW IVP PRN ×6 (00:22→20:33)
[2020-10-12] MEDS: Vancomycin HCl 1.75 GM in Sodium Chloride 0.9% 500 ML IVPB SCH ×2 (08:04→20:56)
[2020-10-12] MEDS ORDERED: Midazolam HCl 2 mg/2 ml Vial ONE (11:03)
[2020-10-12] MEDS ORDERED: Dexamethasone 20 MG/5 ML VIAL ONE (11:22)
[2020-10-12] MEDS ORDERED: PROPOFOL 200 MG/20 ML VIAL ONE (11:22)
[2020-10-12] MEDS ORDERED: Lidocaine 1% PF 5 ML VIAL ONE (11:22)
[2020-10-12] MEDS ORDERED: Ondansetron PF 4 MG/2 ML Vial ONE ×2 (11:22→12:30)
[2020-10-12] MEDS ORDERED: Ketorolac Tromethamine 30 MG/ML VIAL ONE (11:22)
[2020-10-12] MEDS ORDERED: hydrALAZINE 20 MG/ML VIAL SLOW IVP PRN (12:07)
[2020-10-12] MEDS ORDERED: Ondansetron PF 4 MG/2 ML Vial IVP PRN (12:07)
[2020-10-12] MEDS ORDERED: Morphine IR 10 MG/5 ML UDCUP PO PRN (12:07)
[2020-10-12] MEDS ORDERED: Dextrose 50% Abboject 50 ML SYRINGE SLOW IVP PRN (12:07)
[2020-10-12] MEDS ORDERED: Morphine 2 MG/ML VIAL SLOW IVP PRN (12:07)
[2020-10-12] MEDS ORDERED: Dextrose 5% in Water 1,000 ML IV PRN (12:07)
[2020-10-12] MEDS ORDERED: HYDROcodone/Acetaminophen 10/325 mg Tablet PO PRN (12:07)
[2020-10-12] MEDS ORDERED: Promethazine HCl 25 MG/ML VIAL IM PRN (12:07)
[2020-10-12] MEDS ORDERED: Propofol 1,000 MG/100 ML VIAL IV ONE (12:27)
[2020-10-12] MEDS ORDERED: Fentanyl 100 MCG/2 ML VIAL ONE ×4 (12:27→13:50)
[2020-10-12] MEDS ORDERED: HYDROmorphone 0.5 MG/0.5 ML SYRINGE ONE ×2 (12:58→13:18)
[2020-10-12] MEDS ORDERED: Non-Formulary Medication 1 EACH PO PRN (13:16)
[2020-10-12] MEDS ORDERED: HYDROmorphone 2 MG/ML VIAL SLOW IVP PRN (13:30)
[2020-10-12] MEDS ORDERED: Ondansetron HCl/PF 4 MG/2 ML Vial IVP PRN (13:30)
[2020-10-12] MEDS ORDERED: Promethazine HCl 25 MG/ML VIAL IM/IV PRN (13:30)
[2020-10-12] MEDS: Lactated Ringer's 1,000 ML IV SCH (15:13)
[2020-10-12] MEDS: Amlodipine 5 MG TAB PO SCH (15:17)
[2020-10-12] MEDS ORDERED: ALPRAZolam 1 MG TAB PO PRN (16:29)
[2020-10-12] MEDS: Insulin Regular 300 UNITS/3 ML VIAL SC PRN ×2 (16:43→20:33)
[2020-10-12] MEDS: HYDROcodone/Acetaminophen 10/325 mg Tablet PO PRN ×2 (16:50→22:45)
[2020-10-12] MEDS: Famotidine 20 MG TAB PO SCH (20:33)
[2020-10-13] MEDS: Morphine 4 MG/ML VIAL SLOW IVP PRN ×3 (00:22→12:02)
[2020-10-13] MEDS: Lactated Ringer's 1,000 ML IV SCH (03:19)
[2020-10-13] MEDS: Insulin Regular 300 UNITS/3 ML VIAL SC PRN ×2 (04:31→12:04)
[2020-10-13 06:49] LABS: #Eosinphils 0.1 thou/uL (0.0-0.7); #Lymphocytes 3.2 thou/uL (1.20-3.40); #Monocytes 0.7 thou/uL (0.11-0.59); #Neutrophils 10.7 thou/uL (1.40-6.50); %Basophils 0.1 % (0.0-1.0); %Eosinophils 0.7 % (0.0-10.0); %Lymphocytes 21.9 % (21.0-51.0); %Monocytes 4.9 % (0.0-10.0); %Neutrophils 72.5 % (42.0-75.0); Hemoglobin 11.2 g/dL (12.0-16.0); Mean Corpuscular HGB CONC 33.3 g/dL (32.0-36.0); Mean Corpuscular Hemoglobin 31.7 pg (27.0-31.0); Mean Corpuscular Volume 95.2 fL (78.0-98.0); Mean Platelet Volume 8.1 fL (7.4-10.4); Platelet Count 360 thou/uL (130-400); RBC Distribution Width 12.6 % (11.5-14.5); Red Blood Cell (RBC) Count 3.55 mill/uL (4.20-5.40); White Blood Cell (WBC) Count 14.8 thou/uL (4.8-10.8)
[2020-10-13 07:12] LABS: Anion Gap 9 mmol/L (10-20); BUN (Urea Nitrogen) 5 mg/dL (7.0-18.7); Calc. Creatinine Clearance 173 mL/min (70-130); Carbon Dioxide 30 mmol/L (22-29); Chloride 101 mmol/L (98-107); Glucose 161 mg/dL (70-105); Potassium 3.8 mmol/L (3.5-5.1); Sodium 136 mmol/L (136-145); Vancomycin, Trough 16.6 ug/mL
[2020-10-13] MEDS: Famotidine 20 MG TAB PO SCH (08:38)
[2020-10-13] MEDS: HYDROcodone/Acetaminophen 10/325 mg Tablet PO PRN (08:38)
[2020-10-13] MEDS: Amlodipine 5 MG TAB PO SCH (08:40)
[2020-10-13] MEDS ORDERED: Enoxaparin Sodium 30 MG/0.3 ML SYRINGE SC SCH (09:00)
[2020-10-13] MEDS ORDERED: Escitalopram Oxalate 10 mg Tablet PO SCH (09:00)
[2020-10-13] MEDS: Vancomycin HCl 1.75 GM in Sodium Chloride 0.9% 500 ML IVPB SCH (09:51)
[2020-10-13 16:06] VITALS: BP 146/86; TEMP 98.4
== END 2020-10-13 15:55 | disposition home or self-care (01) | DRG 584 ==
LOC: ERS 11:39 → ERHOLD 13:29 → T4-A 17:26 → OBSVTOIN 10-12 13:57
PROVIDERS: ADMIT Surgery; ATTEND Surgery
PROC: 0HBU0ZZ Excision of Left Breast, Open Approach (ICD-10-PCS; principal; 2020-10-12)
PROC: 0H9U0ZZ Drainage of Left Breast, Open Approach (ICD-10-PCS; 2020-10-12)
DX: N61.1 Abscess of the breast and nipple (principal); Z68.41 Body mass index [BMI] 40.0-44.9, adult; F41.9 Anxiety disorder, unspecified; F31.9 Bipolar disorder, unspecified; Z20.822 Contact with and (suspected) exposure to COVID-19; E11.9 Type 2 diabetes mellitus without complications; E66.9 Obesity, unspecified; I10 Essential (primary) hypertension; G89.29 Other chronic pain; F17.210 Nicotine dependence, cigarettes, uncomplicated; Z90.49 Acquired absence of other specified parts of digestive tract; Z79.899 Other long term (current) drug therapy
CPT/HCPCS: 36415; 36416; 80048; 80053; 80202; 81003; 81015; 83605; 85025; 87040; 87070; 87077; 87086; 87205; 88305; 88312; 96376; G0378; J0696; J1100; J1170; J1650; J1815; J1885; J2250; J2270; J2405; J2704; J3010; J3370; J7030; J7050; U0002; U0005

== ENCOUNTER 2021-03-22 13:30 | Emergency (ER) | payer BC, SELFPAY ==
[2021-03-22 15:09] LABS: #Basophils 0.1 thou/uL (0.0-0.2); #Eosinphils 0.1 thou/uL (0.0-0.7); #Lymphocytes 3.8 thou/uL (1.20-3.40); #Monocytes 0.6 thou/uL (0.11-0.59); #Neutrophils 9.4 thou/uL (1.40-6.50); %Basophils 0.4 % (0.0-1.0); %Lymphocytes 27.5 % (21.0-51.0); %Neutrophils 67.2 % (42.0-75.0); Mean Corpuscular HGB CONC 32.8 g/dL (32.0-36.0); Mean Corpuscular Hemoglobin 30.3 pg (27.0-31.0); Mean Corpuscular Volume 92.5 fL (78.0-98.0); Mean Platelet Volume 6.5 fL (7.4-10.4); Platelet Count 492 thou/uL (130-400); RBC Distribution Width 13.7 % (11.5-14.5); Red Blood Cell (RBC) Count 4.29 mill/uL (4.20-5.40); White Blood Cell (WBC) Count 13.9 thou/uL (4.8-10.8)
[2021-03-22 15:15] LABS: BHCG - Serum Negative (NEGATIVE); Pregs Control Background? CLEAR/WHITE (CLR/WHITE); Pregs Control Bar Appear? YES (CONTROL BAR)
[2021-03-22 15:33] LABS: ALT (SGPT) 21 U/L (8-55); AST (SGOT) 20 U/L (5-34); Albumin 4.1 g/dL (3.5-5.0); Alkaline Phosphatase 102 U/L (40-110); Anion Gap 12 mmol/L (10-20); BUN (Urea Nitrogen) 10 mg/dL (7.0-18.7); Bilirubin, Total 0.4 mg/dL (0.2-1.2); Calc. Creatinine Clearance 0 mL/min (70-130); Calcium 9.5 mg/dL (7.8-10.44); Carbon Dioxide 27 mmol/L (22-29); Chloride 101 mmol/L (98-107); Globulin 3.9 g/dL (2.4-3.5); Glucose 99 mg/dL (70-105); Potassium 4.1 mmol/L (3.5-5.1); Sodium 136 mmol/L (136-145)
[2021-03-22] MEDS ORDERED: Ondansetron PF 4 MG/2 ML Vial ONE (19:07)
[2021-03-22] MEDS ORDERED: Ketorolac Tromethamine 30 MG/ML VIAL ONE (19:07)
[2021-03-22 19:28] LABS: Bacteria/HPF None Seen HPF (None Seen); Bilirubin Negative (Negative); Blood, Urine 3+ (Negative); Clarity Clear (Clear); Glucose, Urine (Dipstick) Normal (Negative); Ketone, Urine Negative (Negative); Leukocyte 75 Leu/uL (Negative); Nitrite Negative (Negative); Protein, Urine (Dipstick) 10 mg/dL (Neg-Trace); RBC/HPF Greater than 50 HPF (0-3); Urobilinogen Normal mg/dL (Less than 2)
[2021-03-22 19:31] LABS: Specific Gravity, Urine 1.049 (1.002-1.036)
== END 2021-03-22 20:20 | disposition home or self-care (01) ==
LOC: ERS 13:30
DX: R10.12 Left upper quadrant pain (principal); M54.50 Low back pain, unspecified; D72.829 Elevated white blood cell count, unspecified; I10 Essential (primary) hypertension; E11.9 Type 2 diabetes mellitus without complications; F17.210 Nicotine dependence, cigarettes, uncomplicated
CPT/HCPCS: 36415; 74177; 80053; 81003; 81015; 83690; 84703; 85025; 93005; 96374; 96375; J1885; J2405

== ENCOUNTER 2021-05-03 13:09 | Emergency (ER) | payer BC | END 2021-05-03 15:44 | disposition home or self-care (01) | LOC: ERS 13:09 | DX: L03.313 Cellulitis of chest wall (principal); E11.9 Type 2 diabetes mellitus without complications; I10 Essential (primary) hypertension; F17.210 Nicotine dependence, cigarettes, uncomplicated; Z79.899 Other long term (current) drug therapy; Z79.84 Long term (current) use of oral hypoglycemic drugs | CPT/HCPCS: 99283 ==

== ENCOUNTER 2021-09-29 10:37 | Emergency (ER) | payer BC ==
[2021-09-29 11:15] LABS: #Basophils 0.1 thou/uL (0.0-0.2); #Eosinphils 0.1 thou/uL (0.0-0.7); #Lymphocytes 4.2 thou/uL (1.20-3.40); #Monocytes 0.6 thou/uL (0.11-0.59); #Neutrophils 8.1 thou/uL (1.40-6.50); %Basophils 0.9 % (0.0-1.0); %Lymphocytes 32.2 % (21.0-51.0); %Monocytes 4.3 % (0.0-10.0); %Neutrophils 61.7 % (42.0-75.0); Hemoglobin 14.6 g/dL (12.0-16.0); Mean Corpuscular HGB CONC 31.3 g/dL (32.0-36.0); Mean Corpuscular Hemoglobin 29.4 pg (27.0-31.0); Mean Corpuscular Volume 93.8 fL (78.0-98.0); Mean Platelet Volume 7.1 fL (7.4-10.4); Platelet Count 476 thou/uL (130-400); RBC Distribution Width 14.3 % (11.5-14.5); Red Blood Cell (RBC) Count 4.97 mill/uL (4.20-5.40); White Blood Cell (WBC) Count 13.1 thou/uL (4.8-10.8)
[2021-09-29 11:36] LABS: ALT (SGPT) 28 U/L (8-55); AST (SGOT) 26 U/L (5-34); Albumin 4.4 g/dL (3.5-5.0); Alkaline Phosphatase 103 U/L (40-110); Anion Gap 17 mmol/L (10-20); BUN (Urea Nitrogen) 11 mg/dL (7.0-18.7); Bilirubin, Total 0.5 mg/dL (0.2-1.2); Calc. Creatinine Clearance 0 mL/min (70-130); Calcium 9.3 mg/dL (7.8-10.44); Carbon Dioxide 23 mmol/L (22-29); Chloride 101 mmol/L (98-107); Estimated GFR 89; Glucose 175 mg/dL (70-105); Lipase 30 U/L (8-78); Potassium 4.4 mmol/L (3.5-5.1); Protein, Total 8.4 g/dL (6.0-8.3); Sodium 137 mmol/L (136-145)
[2021-09-29 11:45] LABS: Bacteria/HPF 1+ HPF (None Seen); Bilirubin Negative (Negative); Blood, Urine Negative (Negative); Clarity Clear (Clear); Glucose, Urine (Dipstick) Normal (Negative); Ketone, Urine Negative (Negative); Leukocyte 75 Leu/uL (Negative); Nitrite Negative (Negative); Pregnancy Test - Urine (BHCG) Negative (Negative); Pregu Control Background? CLEAR/WHITE (CLR/WHITE); Pregu Control Bar Appear? YES (CONTROL BAR); Protein, Urine (Dipstick) Negative (Neg-Trace); RBC/HPF 0-3 HPF (0-3); Specific Gravity 1.007 (1.002-1.036); Specific Gravity, Urine 1.007 (1.002-1.036); Urobilinogen Normal mg/dL (Less than 2); pH, Urine 6.5 (5.0-9.0)
[2021-09-29] MEDS ORDERED: Ketorolac Tromethamine 30 MG/ML VIAL ONE (11:57)
[2021-09-29] MEDS ORDERED: Cyclobenzaprine 10 MG TAB ONE (11:57)
== END 2021-09-29 12:33 | disposition home or self-care (01) ==
LOC: ERS 10:37
DX: N39.0 Urinary tract infection, site not specified (principal); E11.9 Type 2 diabetes mellitus without complications; I10 Essential (primary) hypertension; F17.210 Nicotine dependence, cigarettes, uncomplicated; Z79.899 Other long term (current) drug therapy
CPT/HCPCS: 36415; 80053; 81003; 81015; 81025; 83690; 85025; 96372; 99284; J1885

== ENCOUNTER 2021-12-25 12:20 | Emergency (ER) | payer SELFPAY ==
[2021-12-25] MEDS ORDERED: Ketorolac Tromethamine 30 MG/ML VIAL ONE (15:20)
== END 2021-12-25 15:18 | disposition home or self-care (01) ==
LOC: ERS 12:20
DX: S63.601A Unspecified sprain of right thumb, initial encounter (principal); I10 Essential (primary) hypertension; E11.9 Type 2 diabetes mellitus without complications; F17.290 Nicotine dependence, other tobacco product, uncomplicated; W22.8XXA Striking against or struck by other objects, initial encounter; Z79.84 Long term (current) use of oral hypoglycemic drugs; Z79.899 Other long term (current) drug therapy
CPT/HCPCS: 96372; J1885